=== PATIENT | male | born 1985 | race Caucasian/White ===

== ENCOUNTER 2019-05-11 14:53 | Emergency (ER) | payer OTHER ==
[2019-05-11] MEDS ORDERED: Sodium Chloride 0.9% 1,000 ML IV ONE (15:03)
[2019-05-11] MEDS ORDERED: Ketorolac 30 MG/ML SDV IVPUSH ONE (15:04)
[2019-05-11] MEDS ORDERED: Sodium Chloride 0.9% 10 ML Syringe FLUSH PRN (15:04)
[2019-05-11] MEDS ORDERED: Sodium Chloride 0.9% 2.5 ML Syringe FLUSH PRN (15:04)
[2019-05-11] MEDS ORDERED: Ondansetron 4 MG/2 ML SDV IVPUSH ONE (15:10)
[2019-05-11 15:41] LABS: BLOOD UREA NITROGEN,BUN 11 mg/dL (7.0-18.0); CARBON DIOXIDE,CO2 25.1 mmol/L (21.0-32.0); CHLORIDE,CL 104 mmol/L (98-107); GLUCOSE RANDOM 87 mg/dL (74-106); SODIUM,NA 140 mmol/L (136-148)
--- NOTE | 2019-05-11 15:57 | CT ---
Indication: Left flank pain. Technique: Multiple contiguous axial images were obtained from the lung bases through the symphysis pubis without intravenous contrast enhancement. Please note that all CT scans at this facility use dose modulation, iterative reconstruction, and/or weight-based dosing when appropriate to reduce radiation dose to as low as reasonably achievable. Comparison: None Findings: The lung bases are clear. No infiltrate, pleural effusion, or pneumothorax is identified. The heart is normal in size. No pericardial effusions identified. The unenhanced liver, spleen, pancreas, adrenals, and kidneys are normal. No intrahepatic biliary ductal dilatation is identified. Layering stones or sludge are identified within the gallbladder. No renal/ureteral calculi are identified. In the pelvis, the urinary bladder is normal. The prostate gland is normal. The small and large bowel are normal in caliber. Moderate amount of stool is identified within the colon. No significant diverticulosis is identified. The appendix is normal. The aorta is normal in caliber. No lytic or blastic lesions of the spine are identified. Impression: No evidence of hydronephrosis or hydroureter. No renal/ureteral calculi. Please note that all CT scans at this facility use dose modulation, iterative reconstruction, and/or weight-based dosing when appropriate to reduce radiation dose to as low as reasonably achievable. Dictated by Jolly Tadeo MD @ May 11 2019 3:46PM Signed by Dr. Jolly Tadeo @ May 11 2019 3:55PM
--- NOTE | 2019-05-11 16:09 | EDM.PDOC ---
ED HPI GENERAL MEDICAL PROBLEM - General Chief Complaint: Flank Pain Stated Complaint: BACK HURTING Time Seen by Provider: 05/11/19 14:57 Source of Information: Reports: Patient History Limitations: Reports: No Limitations - History of Present Illness INITIAL COMMENTS - FREE TEXT/NARRATIVE: History of present illness: []Patient has had 3 hours of left low back pain that feels like a knife stabbing he denies any trauma or any heavy lifting. 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 Fevers, chills, nausea, vomiting, diarrhea or abdominal pain Review of systems: As per history of present illness and below otherwise all systems reviewed and negative. Past medical history: As per history of present illness and as reviewed below otherwise noncontributory. Surgical history: As per history of present illness and as reviewed below otherwise noncontributory. Social history: No reported history of drug or alcohol abuse. Family history: As per history of present illness and as reviewed below otherwise noncontributory. Physical exam: General: Well developed, well nourished in NAD HEENT: Atraumatic, normocephalic, pupils reactive, negative for conjunctival pallor or scleral icterus, mucous membranes moist, throat clear, neck supple, nontender, trachea midline. Lungs: Clear to auscultation, breath sounds equal bilaterally, chest nontender. Heart: S1S2, regular, negative for clicks, rubs, or JVD. Abdomen: NABS, Soft, nondistended, nontender. Negative for masses or hepatosplenomegaly. Negative for costovertebral tenderness. Pelvis: Stable nontender. Genitourinary: Deferred. Rectal: Deferred. Extremities: Atraumatic, negative for cords or calf pain. Neurovascular unremarkable. Neuro: Awake, alert, oriented. Cranial nerves II through XII unremarkable. Cerebellum unremarkable. Motor and sensory unremarkable throughout. Exam nonfocal. Skin:warm and dry Diagnostics: UA, CBC, chemistry, abdomen and pelvis CT Therapeutics: Toradol IV hydration ED Course: Stable Impression: Low back pain-side without sciatica Prescriptions: Diclofenac Plan: Take meds as directed, follow up with your primary care physician, return to ER if symptoms worsen or change. Definitive disposition and diagnosis as appropriate pending reevaluation and review of above. left flank Pain Score (Numeric/FACES): 8 - Related Data Allergies Allergy/AdvReac Type Severity Reaction Status Date / Time morphine Allergy Itching Verified 05/11/19 15:07 Home Meds: Home Meds Diclofenac Sodium [Voltaren] 75 mg PO BIDMEALS PRN #20 tab.cr 05/11/19 [Rx] Past Medical History - Past Health History Medical/Surgical History: Denies Medical/Surgical History Cardiovascular History: Reports: Hypertension Gastrointestinal History: Reports: GERD Musculoskeletal History: Reports: Back Pain, Chronic - Past Surgical History GI Surgical History: Reports: Colonoscopy, Hernia, Inguinal, Hernia Repair/Other Musculoskeletal Surgical History: Reports: Other (See Below) Other Musculoskeletal Surgeries/Procedures:: hand sx Social & Family History - Family History Family Medical History: Noncontributory - Tobacco Use Smoking Status *Q: Current Every Day Smoker Years of Tobacco use: 22 Packs/Tins Daily: 0.5 - Recreational Drug Use Recreational Drug Use: No ED ROS GENERAL - Review of Systems Review Of Systems: See Below ED EXAM,LOWER BACK PAIN/INJURY - Physical Exam Exam: See Below Course - Vital Signs Last Recorded V/S: Last Vital Signs Temp 98.1 F 05/11/19 15:05 Pulse 86 05/11/19 15:05 Resp 18 05/11/19 15:05 BP 137/90 05/11/19 15:05 Pulse Ox 97 05/11/19 15:05 - Orders/Labs/Meds Orders: Active Orders 24 hr Category Date Time Status Sodium Chloride 0.9% [Saline Flush] Med 05/11/19 15:04 Active 10 ml FLUSH ASDIRECTED PRN Sodium Chloride 0.9% [Saline Flush] Med 05/11/19 15:04 Active 2.5 ml FLUSH ASDIRECTED PRN Saline Lock Insert [OM.PC] Stat Oth 05/11/19 15:03 Ordered Medication Orders Sodium Chloride (Saline Flush) 10 ml FLUSH ASDIRECTED PRN PRN Reason: Keep Vein Open Sodium Chloride (Saline Flush) 2.5 ml FLUSH ASDIRECTED PRN PRN Reason: Keep Vein Open Labs: Laboratory Tests 05/11/19 05/11/19 05/11/19 Range/Units 15:15 15:15 16:05 WBC 11.08 H (4.0-11.0) K/uL RBC 5.09 (4.50-5.90) M/uL Hgb 15.7 (13.0-17.0) g/dL Hct 46.5 (38.0-50.0) % MCV 91.4 (80.0-98.0) fL MCH 30.8 (27.0-32.0) pg MCHC 33.8 (31.0-37.0) g/dL RDW Std Deviation 45.3 (28.0-62.0) fl RDW Coeff of Mariza 14 (11.0-15.0) % Plt Count 246 (150-400) K/uL MPV 10.50 (7.40-12.00) fL Neut % (Auto) 62.2 (48.0-80.0) % Lymph % (Auto) 29.4 (16.0-40.0) % [place] % (Auto) 7.5 (0.0-15.0) % Eos % (Auto) 0.6 (0.0-7.0) % Baso % (Auto) 0.3 (0.0-1.5) % Neut # (Auto) 6.9 H (1.4-5.7) K/uL Lymph # (Auto) 3.3 H (0.6-2.4) K/uL [place] # (Auto) 0.8 (0.0-0.8) K/uL Eos # (Auto) 0.1 (0.0-0.7) K/uL Baso # (Auto) 0.0 (0.0-0.1) K/uL Nucleated RBC % 0.0 /100WBC Nucleated RBCs # 0 K/uL Sodium 140 (136-148) mmol/L Potassium 4.0 (3.5-5.1) mmol/L Chloride 104 (98-107) mmol/L Carbon Dioxide 25.1 (21.0-32.0) mmol/L BUN 11 (7.0-18.0) mg/dL Creatinine 1.2 (0.8-1.3) mg/dL Est Cr Clr Drug Dosing 93.41 mL/min Estimated GFR (MDRD) > 60.0 ml/min Glucose 87 (74-106) mg/dL Calcium 9.0 (8.5-10.1) mg/dL Total Bilirubin 0.4 (0.2-1.0) mg/dL AST 21 (15-37) IU/L ALT 37 (14-63) IU/L Alkaline Phosphatase 79 (46-116) U/L Total Protein 8.3 H (6.4-8.2) g/dL Albumin 4.2 (3.4-5.0) g/dL Globulin 4.1 H (2.6-4.0) g/dL Albumin/Globulin Ratio 1.0 (0.9-1.6) Urine Color YELLOW Urine Appearance CLEAR Urine pH 6.0 (5.0-8.0) Ur Specific [place] 1.025 (1.001-1.035) Urine Protein NEGATIVE (NEGATIVE) mg/dL Urine Glucose (UA) NEGATIVE (NEGATIVE) mg/dL Urine Ketones NEGATIVE (NEGATIVE) mg/dL Urine Occult Blood TRACE-INTACT H (NEGATIVE) Urine Nitrite NEGATIVE (NEGATIVE) Urine Bilirubin NEGATIVE (NEGATIVE) Urine Urobilinogen 0.2 (<2.0) EU/dL Ur Leukocyte Esterase NEGATIVE (NEGATIVE) Urine RBC 0-1 (0-2/HPF) Urine WBC NONE SEEN (0-5/HPF) Ur Epithelial Cells RARE (NONE-FEW) Urine Bacteria NOT SEEN (NEGATIVE) Urine Mucus LIGHT (NONE-MOD) Meds: Medications Generic Name Dose Route Start Last Admin Trade Name Freq PRN Reason Stop Dose Admin Sodium Chloride 10 ml 05/11/19 15:04 Saline Flush FLUSH ASDIRECTED PRN Keep Vein Open Sodium Chloride 2.5 ml 05/11/19 15:04 Saline Flush FLUSH ASDIRECTED PRN Keep Vein Open Discontinued Medications Generic Name Dose Route Start Last Admin Trade Name Freq PRN Reason Stop Dose Admin Sodium Chloride 1,000 mls @ 999 mls/hr 05/11/19 15:03 05/11/19 15:18 Normal Saline IV 05/11/19 16:03 999 mls/hr .Bolus ONE Administration Ketorolac Tromethamine 30 mg 05/11/19 15:04 05/11/19 15:18 Toradol IVPUSH 05/11/19 15:05 30 mg ONETIME ONE Administration Ondansetron HCl 4 mg 05/11/19 15:10 Zofran IVPUSH 05/11/19 15:11 ONETIME ONE Departure - Departure Time of Disposition: 16:22 Disposition: Home, Self-Care 01 Condition: Good Clinical Impression: Low back pain - Discharge Information *PRESCRIPTION DRUG MONITORING PROGRAM REVIEWED*: Not Applicable *COPY OF PRESCRIPTION DRUG MONITORING REPORT IN PATIENT SEVERO: Not Applicable Prescriptions: Diclofenac Sodium [Voltaren] 75 mg PO BIDMEALS PRN #20 tab.cr PRN Reason: Pain Instructions: Acute Back Pain, Adult Referrals: Quang Quevedo MD [Primary Care Provider] - Forms: ED Department Discharge Additional Instructions: The following information is given to patients seen in the emergency department who are being discharged to home. This information is to outline your options for follow-up care. We provide all patients seen in our emergency department with a follow-up referral. The need for follow-up, as well as the timing and circumstances, are variable depending upon the specifics of your emergency department visit. If you don't have a primary care physician on staff, we will provide you with a referral. We always advise you to contact your personal physician following an emergency department visit to inform them of the circumstance of the visit and for follow-up with them and/or the need for any referrals to a consulting specialist. The emergency department will also refer you to a specialist when appropriate. This referral assures that you have the opportunity for follow-up care with a specialist. All of these measure are taken in an effort to provide you with optimal care, which includes your follow-up. Under all circumstances we always encourage you to contact your private physician who remains a resource for coordinating your care. When calling for follow-up care, please make the office aware that this follow-up is from your recent emergency room visit. If for any reason you are refused follow-up, please contact the [facility] Emergency Department at and asked to speak to the emergency department charge nurse. Take meds as directed, follow up with your primary care physician, return to ER if symptoms worsen or change. [facility] [address] [place] [id number] - My Orders Last 24 Hours: My Active Orders 05/11/19 15:03 Saline Lock Insert [OM.PC] Stat 05/11/19 15:04 Sodium Chloride 0.9% [Saline Flush] 10 ml FLUSH ASDIRECTED PRN Sodium Chloride 0.9% [Saline Flush] 2.5 ml FLUSH ASDIRECTED PRN - Assessment/Plan Last 24 Hours: My Active Orders 05/11/19 15:03 Saline Lock Insert [OM.PC] Stat 05/11/19 15:04 Sodium Chloride 0.9% [Saline Flush] 10 ml FLUSH ASDIRECTED PRN Sodium Chloride 0.9% [Saline Flush] 2.5 ml FLUSH ASDIRECTED PRN
== END 2019-05-11 16:35 | disposition home or self-care (01) ==
LOC: MW.ED 14:53
DX: M54.5 Low back pain (principal); I10 Essential (primary) hypertension; K21.9 Gastro-esophageal reflux disease without esophagitis; F17.210 Nicotine dependence, cigarettes, uncomplicated
CPT/HCPCS: 36415; 74176; 80053; 81001; 85025; 96361; 96374; 99284; J1885; J7040

== ENCOUNTER 2019-10-23 16:27 | Observation (INO) | payer OTHER ==
--- NOTE | 2019-10-23 17:36 | EDM.PDOC ---
ED HPI GENERAL MEDICAL PROBLEM - General Chief Complaint: Lower Extremity Injury/Pain Stated Complaint: MUSCLE FATIGUE Time Seen by Provider: 10/23/19 17:25 Source of Information: Reports: Patient History Limitations: Reports: No Limitations - History of Present Illness INITIAL COMMENTS - FREE TEXT/NARRATIVE: This 34 year old male presents to the ED with a chief complaint of soreness and weakness in both legs. He denies any trauma to his extremities. He states that he wonder if he hurt his muscles. He was seen by his urologist yesterday and was sent to the respiratory clinic and a COVID-19 test was done. The results are pending. He denies any coughing or SOB. He denies any other symptoms at this time. Onset: Gradual (two weeks) Severity: Mild (to moderate but feels better now.) generalized aches Pain Score (Numeric/FACES): 4 - Related Data Allergies Allergy/AdvReac Type Severity Reaction Status Date / Time morphine Allergy Itching Verified 10/23/19 16:48 Home Meds: Home Meds Baclofen 10 mg PO ASDIRECTED PRN 10/23/19 [History] Ibuprofen [Motrin] 1 tab PO ASDIRECTED PRN 10/23/19 [History] Loratadine [Claritin] 1 tab PO DAILY 10/23/19 [History] Losartan Potassium 1 tab PO DAILY 10/23/19 [History] Non-Formulary Medication [NF Drug] 1 patch TOP ASDIRECTED PRN 10/23/19 [History] Omeprazole 1 tab PO DAILY 10/23/19 [History] Past Medical History - Past Health History Medical/Surgical History: Denies Medical/Surgical History Cardiovascular History: Reports: Hypertension Respiratory History: Reports: Sleep Apnea Other Respiratory History: uses a cpap Gastrointestinal History: Reports: GERD Musculoskeletal History: Reports: Back Pain, Chronic - Infectious Disease History Infectious Disease History: Reports: Chicken Pox - Past Surgical History GI Surgical History: Reports: Colonoscopy, Hernia, Inguinal, Hernia Repair/Other Musculoskeletal Surgical History: Reports: Other (See Below) Other Musculoskeletal Surgeries/Procedures:: hand sx, r wrist fusion. groin flap for hand Social & Family History - Family History Family Medical History: Noncontributory - Tobacco Use Smoking Status *Q: Current Every Day Smoker Years of Tobacco use: 18 Packs/Tins Daily: 0.5 - Caffeine Use Caffeine Use: Reports: Soda - Recreational Drug Use Recreational Drug Use: No Review of Systems - Review of Systems Review Of Systems: See Below Constitutional: Reports: Weakness (mainly in both legs that has gotten better) Eyes: Reports: No Symptoms Ears: Reports: No Symptoms Nose: Reports: No Symptoms Mouth/Throat: Reports: No Symptoms Respiratory: Reports: No Symptoms Cardiovascular: Reports: No Symptoms GI/Abdominal: Reports: No Symptoms Genitourinary: Reports: No Symptoms Musculoskeletal: Reports: Muscle Pain (and weakness of both anterior thighs.) Skin: Reports: No Symptoms Neurological: Reports: No Symptoms ED EXAM, GENERAL - Physical Exam Exam: See Below Exam Limited By: No Limitations General Appearance: Alert, WD/WN, No Apparent Distress, Other (He is obese) Eye Exam: Bilateral Eye: EOMI, Normal Fundi, Normal Inspection, PERRL Ears: Normal External Exam, Normal Canal, Hearing Grossly Normal, Normal TMs Nose: Normal Inspection, Normal Mucosa, No Blood Throat/Mouth: Normal Inspection, Normal Oropharynx Neck: Normal Inspection, Supple, Non-Tender, Full Range of Motion Respiratory/Chest: No Respiratory Distress, Lungs Clear, Normal Breath Sounds, Chest Non-Tender Cardiovascular: Normal Peripheral Pulses, Regular Rate, Rhythm, No Edema, No Murmur Peripheral Pulses: 3+: Radial (L), Radial (R), Dorsalis Pedis (L), Dorsalis Pedis (R) GI/Abdominal: Normal Bowel Sounds, Soft, Non-Tender, No Organomegaly, No Abnormal Bruit, No Mass (Male) Exam: Deferred Rectal (Males) Exam: Deferred Back Exam: Normal Inspection, Full Range of Motion Extremities: Normal Inspection, Normal Range of Motion, Non-Tender, Normal Capillary Refill. No: Joint Swelling, Belia's Sign, Increased Warmth, Redness Neurological: Alert, Oriented (times 3), CN II-XII Intact, Normal Cognition, Normal Reflexes, No Motor/Sensory Deficits Psychiatric: Normal Affect, Normal Mood Skin Exam: Warm, Dry, Intact, Normal Color, No Rash Lymphatic: No Adenopathy Course - Vital Signs Text/Narrative:: I discussed this case with Dr. Loza at 6:45PM. He will be admitted for further evaluation of his generalized weakness and hypokalemia. The patient agrees with the admission. Last Recorded V/S: Last Vital Signs Temp 98.6 F 10/23/19 16:45 Pulse 100 10/23/19 16:45 Resp 20 10/23/19 16:45 BP 166/112 H 10/23/19 16:45 Pulse Ox 95 10/23/19 16:45 - Orders/Labs/Meds Orders: Active Orders 24 hr Category Date Time Status MYOGLOBIN, URINE Stat Lab 10/23/19 17:42 Ordered Labs: Laboratory Tests 10/23/19 10/23/19 Range/Units 17:50 17:50 WBC 12.71 H (4.0-11.0) K/uL RBC 5.28 (4.50-5.90) M/uL Hgb 16.4 (13.0-17.0) g/dL Hct 49.2 (38.0-50.0) % MCV 93.2 (80.0-98.0) fL MCH 31.1 (27.0-32.0) pg MCHC 33.3 (31.0-37.0) g/dL RDW Std Deviation 46.1 (28.0-62.0) fl RDW Coeff of Mariza 14 (11.0-15.0) % Plt Count 216 (150-400) K/uL MPV 10.80 (7.40-12.00) fL Neut % (Auto) 68.9 (48.0-80.0) % Lymph % (Auto) 20.4 (16.0-40.0) % [place] % (Auto) 9.6 (0.0-15.0) % Eos % (Auto) 0.8 (0.0-7.0) % Baso % (Auto) 0.3 (0.0-1.5) % Neut # (Auto) 8.8 H (1.4-5.7) K/uL Lymph # (Auto) 2.6 H (0.6-2.4) K/uL [place] # (Auto) 1.2 H (0.0-0.8) K/uL Eos # (Auto) 0.1 (0.0-0.7) K/uL Baso # (Auto) 0.0 (0.0-0.1) K/uL Nucleated RBC % 0.0 /100WBC Nucleated RBCs # 0 K/uL Sodium 140 (136-148) mmol/L Potassium 3.3 L (3.5-5.1) mmol/L Chloride 104 (98-107) mmol/L Carbon Dioxide 26.4 (21.0-32.0) mmol/L BUN 12 (7.0-18.0) mg/dL Creatinine 1.0 (0.8-1.3) mg/dL Est Cr Clr Drug Dosing 112.09 mL/min Estimated GFR (MDRD) > 60.0 ml/min Glucose 83 (74-106) mg/dL Calcium 8.3 L (8.5-10.1) mg/dL Total Bilirubin 0.3 (0.2-1.0) mg/dL AST 33 (15-37) IU/L ALT 61 (14-63) IU/L Alkaline Phosphatase 76 (46-116) U/L Total Protein 7.2 (6.4-8.2) g/dL Albumin 3.6 (3.4-5.0) g/dL Globulin 3.6 (2.6-4.0) g/dL Albumin/Globulin Ratio 1.0 (0.9-1.6) Meds: Medications Discontinued Medications Generic Name Dose Route Start Last Admin Trade Name Freq PRN Reason Stop Dose Admin Potassium Chloride 20 meq 10/23/19 18:33 Klor-Con M20 PO 10/23/19 18:34 ONETIME ONE Departure - Departure Time of Disposition: 18:47 Disposition: Refer to Observation Condition: Fair Clinical Impression: Generalized weakness, Hypokalemia - Discharge Information *PRESCRIPTION DRUG MONITORING PROGRAM REVIEWED*: Yes *COPY OF PRESCRIPTION DRUG MONITORING REPORT IN PATIENT SEVERO: Yes Referrals: Henry Andrews [employer] [Primary Care Provider] - Sepsis Event Note - Evaluation Sepsis Screening Result: No Definite Risk - Focused Exam Vital Signs: Vital Signs Temp Pulse Resp BP Pulse Ox 10/23/19 16:45 98.6 F 100 20 166/112 H 95 Date Exam was Performed: 10/23/19 Time Exam was Performed: 18:47 - My Orders Last 24 Hours: My Active Orders 10/23/19 17:42 MYOGLOBIN, URINE Stat - Assessment/Plan Last 24 Hours: My Active Orders 10/23/19 17:42 MYOGLOBIN, URINE Stat
[2019-10-23 18:30] LABS: BLOOD UREA NITROGEN,BUN 12 mg/dL (7.0-18.0); CARBON DIOXIDE,CO2 26.4 mmol/L (21.0-32.0); CHLORIDE,CL 104 mmol/L (98-107); GLUCOSE RANDOM 83 mg/dL (74-106); POTASSIUM,K 3.3 mmol/L (3.5-5.1); SODIUM,NA 140 mmol/L (136-148)
[2019-10-23] MEDS ORDERED: Potassium Chloride 20 MEQ Tab.ER PO ONE (18:33)
--- NOTE | 2019-10-23 20:06 | PCM.HP.2 ---
H&P History of Present Illness - General Date of Service: 10/23/19 Admit Problem/Dx: Admission Diagnosis/Problem Admission Diagnosis/Problem Weakness - History of Present Illness Initial Comments - Free Text/Narative: This 34 year old male with PMH of HTN, low back pain, presents to the ED with a chief complaint of soreness and weakness in both legs more prominent in his right leg. . Patient states that he has been feeling very weak and tired from last 10 days. He saw his urologist yesterday who recommended getting tested for Covid which was done yesterday, results pending. Patient has been on testosterone supplements for past 10 weeks. Denied any trauma, high intensity exercise, drug use, herb use. 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 Patient had mild leucocytosis , no other SIRS, BP was elevated. Mild hypokalemia. Patient also had a low impact fall in the ER while going to bathroom. Patient was admitted for further management. generalized aches Pain Score (Numeric/FACES): 4 - Related Data Allergies/Adverse Reactions: Allergies Allergy/AdvReac Type Severity Reaction Status Date / Time morphine Allergy Itching Verified 10/23/19 20:56 Home Medications: Home Meds Baclofen 10 mg PO ASDIRECTED PRN 10/23/19 [History] Ibuprofen [Motrin] 800 mg PO ASDIRECTED PRN 10/23/19 [History] Loratadine [Claritin] 10 mg PO ASDIRECTED PRN 10/23/19 [History] Losartan Potassium 10 mg PO DAILY 10/23/19 [History] Non-Formulary Medication [NF Drug] 1 patch TOP ASDIRECTED PRN 10/23/19 [History] Omeprazole 20 mg PO ASDIRECTED PRN 10/23/19 [History] Past Medical History - Past Health History Medical/Surgical History: Denies Medical/Surgical History Cardiovascular History: Reports: Hypertension Respiratory History: Reports: Sleep Apnea Other Respiratory History: uses a cpap Gastrointestinal History: Reports: GERD Musculoskeletal History: Reports: Back Pain, Chronic - Infectious Disease History Infectious Disease History: Reports: Chicken Pox - Past Surgical History GI Surgical History: Reports: Colonoscopy, Hernia, Inguinal, Hernia Repair/Other Musculoskeletal Surgical History: Reports: Other (See Below) Other Musculoskeletal Surgeries/Procedures:: hand sx, r wrist fusion. groin flap for hand Social & Family History - Family History Family Medical History: Noncontributory - Tobacco Use Smoking Status *Q: Current Every Day Smoker Years of Tobacco use: 18 Packs/Tins Daily: 0.5 - Caffeine Use Caffeine Use: Reports: Soda - Recreational Drug Use Recreational Drug Use: No H&P Review of Systems - Review of Systems: Review Of Systems: See Below General: Reports: Malaise, Weakness, Fatigue. Denies: Fever, Chills HEENT: Denies: Dysphasia, Ear Pain Pulmonary: Denies: Shortness of Breath, Wheezing, Pleuritic Chest Pain Cardiovascular: Denies: Chest Pain, Palpitations, Dyspnea on Exertion Gastrointestinal: Denies: Abdominal Pain, Anorexia, Black Stool Genitourinary: Denies: Dysuria, Frequency, Burning Musculoskeletal: Denies: Neck Pain, Shoulder Pain, Arm Pain Skin: Denies: Jaundice, Mottled, Pallor Psychiatric: Denies: Confusion, Depression Exam - Exam Exam: See Below - Vital Signs Vital Signs: Last Vital Signs Temp 37.0 C 10/23/19 16:45 Pulse 100 10/23/19 16:45 Resp 20 10/23/19 16:45 BP 166/112 H 10/23/19 16:45 Pulse Ox 95 10/23/19 16:45 Weight: 139.253 kg - Exam General: Alert, Oriented, Cooperative Neck: Supple, Trachea Midline Lungs: Clear to Auscultation, Normal Respiratory Effort Cardiovascular: Regular Rate, Regular Rhythm, Normal S1, Normal S2 GI/Abdominal Exam: Normal Bowel Sounds, Soft, Non-Tender Skin: Warm, Dry Neuro Extensive - Mental Status: Alert, Oriented x3, Normal Cognition Neuro Extensive - Motor, Sensory, Reflexes: CN II-XII Intact, Abnormal Gait. No : Receptive Aphasia, Facial Palsy (R), Facial Palsy w Forehead DTR: 2+: Patella (L), 3+: Patella (R) - Patient Data Lab Results Last 24 hrs: Laboratory Results - last 24 hr 10/23/19 10/23/19 10/23/19 Range/Units 17:50 17:50 19:00 WBC 12.71 H (4.0-11.0) K/uL RBC 5.28 (4.50-5.90) M/uL Hgb 16.4 (13.0-17.0) g/dL Hct 49.2 (38.0-50.0) % MCV 93.2 (80.0-98.0) fL MCH 31.1 (27.0-32.0) pg MCHC 33.3 (31.0-37.0) g/dL RDW Std Deviation 46.1 (28.0-62.0) fl RDW Coeff of Mariza 14 (11.0-15.0) % Plt Count 216 (150-400) K/uL MPV 10.80 (7.40-12.00) fL Neut % (Auto) 68.9 (48.0-80.0) % Lymph % (Auto) 20.4 (16.0-40.0) % [place] % (Auto) 9.6 (0.0-15.0) % Eos % (Auto) 0.8 (0.0-7.0) % Baso % (Auto) 0.3 (0.0-1.5) % Neut # (Auto) 8.8 H (1.4-5.7) K/uL Lymph # (Auto) 2.6 H (0.6-2.4) K/uL [place] # (Auto) 1.2 H (0.0-0.8) K/uL Eos # (Auto) 0.1 (0.0-0.7) K/uL Baso # (Auto) 0.0 (0.0-0.1) K/uL Nucleated RBC % 0.0 /100WBC Nucleated RBCs # 0 K/uL Sodium 140 (136-148) mmol/L Potassium 3.3 L (3.5-5.1) mmol/L Chloride 104 (98-107) mmol/L Carbon Dioxide 26.4 (21.0-32.0) mmol/L BUN 12 (7.0-18.0) mg/dL Creatinine 1.0 (0.8-1.3) mg/dL Est Cr Clr Drug Dosing 112.09 mL/min Estimated GFR (MDRD) > 60.0 ml/min Glucose 83 (74-106) mg/dL Calcium 8.3 L (8.5-10.1) mg/dL Total Bilirubin 0.3 (0.2-1.0) mg/dL AST 33 (15-37) IU/L ALT 61 (14-63) IU/L Alkaline Phosphatase 76 (46-116) U/L Total Protein 7.2 (6.4-8.2) g/dL Albumin 3.6 (3.4-5.0) g/dL Globulin 3.6 (2.6-4.0) g/dL Albumin/Globulin Ratio 1.0 (0.9-1.6) Urine Color YELLOW Urine Appearance HAZY Urine pH 6.0 (5.0-8.0) Ur Specific [place] >= 1.030 (1.001-1.035) Urine Protein NEGATIVE (NEGATIVE) mg/dL Urine Glucose (UA) NEGATIVE (NEGATIVE) mg/dL Urine Ketones NEGATIVE (NEGATIVE) mg/dL Urine Occult Blood TRACE-INTACT H (NEGATIVE) Urine Nitrite NEGATIVE (NEGATIVE) Urine Bilirubin NEGATIVE (NEGATIVE) Urine Urobilinogen 0.2 (<2.0) EU/dL Ur Leukocyte Esterase NEGATIVE (NEGATIVE) Urine RBC 1-4 (0-2/HPF) Urine WBC 0-3 (0-5/HPF) Ur Epithelial Cells RARE (NONE-FEW) Urine Bacteria FEW (NEGATIVE) Result Diagrams: 10/24/19 06:15 10/24/19 06:15 Sepsis Event Note - Evaluation Sepsis Screening Result: No Definite Risk - Focused Exam Vital Signs: Vital Signs Temp Pulse Resp BP Pulse Ox 10/23/19 16:45 37.0 C 100 20 166/112 H 95 Date Exam was Performed: 10/26/19 Time Exam was Performed: 12:14 - Problem List (1) Generalized weakness SNOMED Code(s): 87530270 ICD Code: R53.1 - WEAKNESS Status: Acute (2) Hypokalemia SNOMED Code(s): 94314267 ICD Code: E87.6 - HYPOKALEMIA Status: Acute (3) Weakness of right foot SNOMED Code(s): 461456991 ICD Code: R29.898 - OTH SYMPTOMS AND SIGNS INVOLVING THE MUSCULOSKELETAL SYSTEM Status: Acute Problem List Initiated/Reviewed/Updated: Yes Orders Last 24hrs: Active Orders 24 hr Category Date Time Status Admission Status [Patient Status] [ADT] Stat ADT 10/23/19 18:51 Active Antiembolic Devices [RC] PER UNIT ROUTINE Care 10/23/19 19:59 Ordered Oxygen Therapy [RC] PRN Care 10/23/19 19:57 Ordered Pulse Oximetry [RC] PRN Care 10/23/19 19:57 Ordered Up With Assistance [RC] ASDIRECTED Care 10/23/19 19:57 Ordered VTE/DVT Education [RC] PER UNIT ROUTINE Care 10/23/19 19:57 Ordered Vital Signs [RC] Q4H Care 10/23/19 19:57 Ordered Heart Healthy Diet [DIET] Diet 10/23/19 Dinner Ordered C-REACTIVE PROTEIN [CHEM] Routine Lab 10/23/19 19:57 Ordered C-REACTIVE PROTEIN [CHEM] Routine Lab 10/23/19 19:57 Stop Req CPK [CREATINE KINASE,CK] [CHEM] Routine Lab 10/23/19 19:56 Ordered MYOGLOBIN, URINE Stat Lab 10/23/19 17:42 Ordered TROPONIN I [CHEM] Routine Lab 10/23/19 20:02 Ordered Lactated Ringers @ 125 MLS/HR(1000ml) Med 10/23/19 20:00 Ordered Lactated Ringers [Ringers, Lactated] 1,000 ml IV ASDIRECTED Losartan Potassium Med 10/24/19 09:00 Ordered 1 tab PO DAILY Omeprazole Med 10/24/19 09:00 Ordered 20 mg PO DAILY Sequential Compression Device [OM.PC] Per Unit Routine Oth 10/23/19 19:59 Ordered Resuscitation Status Routine Resus Stat 10/23/19 19:57 Ordered Medication Orders Lactated Ringer's (Ringers, Lactated) 1,000 mls @ 125 mls/hr IV ASDIRECTED WILLIS Non-Formulary Medication (Losartan Potassium) 1 tab PO DAILY WILLIS Omeprazole (Omeprazole) 20 mg PO DAILY WILLIS Assessment/Plan Comment:: 34 y/o M admitted for weakness, fall Will check CPK, TSH, CRP Will start hydration with IV fluids Will f/u on Covid results Has focal weakness of right foot, will obtain CT scan head to r/o acute stroke. UA noted, repeat UA in AM Resume BP meds Monitor and replete electrolytes as needed CD for DVT ppx
--- NOTE | 2019-10-23 20:47 | CT ---
Head CT Technique: Multiple axial sections were obtained through the brain. Intravenous contrast was not utilized. Comparison: No prior intracranial imaging. Findings: Ventricles along with basal cisterns and sulci over the convexities are within normal limits for the patient's age. No abnormal parenchymal densities are seen. No evidence of intracranial hemorrhage. No midline shift or mass-effect is seen. Bone window settings were reviewed. Mastoid sinuses show nothing acute. Visualized paranasal sinuses show nothing acute. No acute calvarial abnormality is appreciated. Impression: 1. No abnormality is appreciated on noncontrast head CT study. Note: Please correlate if patient's symptoms warrant further evaluation by MRI. Diagnostic code #1 This report was dictated in MDT
[2019-10-23] MEDS: Lactated Ringers 1,000 ML IV SCH (21:18)
[2019-10-23] MEDS ORDERED: Labetalol 100 MG/20 ML MDV IVPUSH PRN (23:38)
[2019-10-24] MEDS: Lactated Ringers 1,000 ML IV SCH ×2 (05:30→13:34)
[2019-10-24 07:01] LABS: BLOOD UREA NITROGEN,BUN 11 mg/dL (7.0-18.0); CARBON DIOXIDE,CO2 27.3 mmol/L (21.0-32.0); CHLORIDE,CL 105 mmol/L (98-107); GLUCOSE RANDOM 94 mg/dL (74-106); POTASSIUM,K 4.2 mmol/L (3.5-5.1); SODIUM,NA 140 mmol/L (136-148)
[2019-10-24] MEDS ORDERED: Omeprazole 20 MG Cap.CR PO SCH (09:00)
[2019-10-24] MEDS ORDERED: LOSARTAN POTASSIUM PO SCH (09:00)
[2019-10-24] MEDS ORDERED: LORazepam 2 MG/ML SDV IVPUSH ONE (13:39)
--- NOTE | 2019-10-24 13:59 | PCM.DCSUM1 ---
Discharge Summary - Hospital Course HPI Initial Comments: This 34 year old male with PMH of HTN, low back pain, presents to the ED with a chief complaint of soreness and weakness in both legs more prominent in his right leg. Patient states that he has been feeling very weak and tired from last 10 days. He saw his urologist yesterday who recommended getting tested for Covid which was done yesterday, results pending. Patient has been on testosterone supplements for past 10 weeks. Denied any trauma, high intensity exercise, drug use, herb use. 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 Patient had mild leucocytosis , no other SIRS, BP was elevated. Mild hypokalemia. Patient also had a low impact fall in the ER while going to bathroom. Patient was admitted for further management. Patient was started on IV fluids, CPK was mildly elevated to 600s, CRP was negative, ESR was 5, TSH normal, BP stable, no fever. CT head was obtained due to right foot weakness, which was negative as well. Overnight his symptoms improved, foot weakness resolved. PT assessed the patient for safe ambulation. Patient was medically stable for dc and recommended to fu with PCP and neurology on Outpatient basis. - Discharge Data Discharge Date: 10/24/19 Discharge Disposition: Home, Self-Care 01 Condition: Stable - Referral to Home Health Primary Care Physician: Henry Andrews NP - Discharge Diagnosis/Problem(s) (1) Generalized weakness SNOMED Code(s): 17113616 ICD Code: R53.1 - WEAKNESS Status: Acute (2) Hypokalemia SNOMED Code(s): 11313595 ICD Code: E87.6 - HYPOKALEMIA Status: Acute (3) Weakness of right foot SNOMED Code(s): 800106838 ICD Code: R29.898 - OTH SYMPTOMS AND SIGNS INVOLVING THE MUSCULOSKELETAL SYSTEM Status: Acute - Patient Summary/Data Consults: Consultations 10/24/19 08:01 PT Evaluation and Treatment [CONS] Routine - Discharge Plan *PRESCRIPTION DRUG MONITORING PROGRAM REVIEWED*: Yes *COPY OF PRESCRIPTION DRUG MONITORING REPORT IN PATIENT SEVERO: Yes Home Medications: Home Meds Baclofen 10 mg PO ASDIRECTED PRN 10/23/19 [History] Ibuprofen [Motrin] 800 mg PO ASDIRECTED PRN 10/23/19 [History] Loratadine [Claritin] 10 mg PO ASDIRECTED PRN 10/23/19 [History] Losartan Potassium 10 mg PO DAILY 10/23/19 [History] Non-Formulary Medication [NF Drug] 1 patch TOP ASDIRECTED PRN 10/23/19 [History] Omeprazole 20 mg PO ASDIRECTED PRN 10/23/19 [History] Patient Handouts: COVID-19 Frequently Asked Questions Referrals: Henry Andrews TEST INSPECTION ENGINEER [Primary Care Provider] - - Discharge Summary/Plan Comment DC Time >30 min.: No - Patient Data Vitals - Most Recent: Last Vital Signs Temp 37 C 10/24/19 12:00 Pulse 75 10/24/19 12:00 Resp 18 10/24/19 12:00 BP 140/89 10/24/19 12:00 Pulse Ox 95 10/24/19 12:00 Weight - Most Recent: 139.4 kg I&O - Last 24 hours: Intake & Output 10/23/19 10/24/19 10/24/19 22:59 06:59 14:59 Intake Total 1204 Output Total 200 Balance 1004 Lab Results - Last 24 hrs: Laboratory Results - last 24 hr 10/23/19 10/23/19 10/23/19 Range/Units 17:50 17:50 17:50 WBC 12.71 H (4.0-11.0) K/uL RBC 5.28 (4.50-5.90) M/uL Hgb 16.4 (13.0-17.0) g/dL Hct 49.2 (38.0-50.0) % MCV 93.2 (80.0-98.0) fL MCH 31.1 (27.0-32.0) pg MCHC 33.3 (31.0-37.0) g/dL RDW Std Deviation 46.1 (28.0-62.0) fl RDW Coeff of Mariza 14 (11.0-15.0) % Plt Count 216 (150-400) K/uL MPV 10.80 (7.40-12.00) fL Neut % (Auto) 68.9 (48.0-80.0) % Lymph % (Auto) 20.4 (16.0-40.0) % Bib[place] % (Auto) 9.6 (0.0-15.0) % Eos % (Auto) 0.8 (0.0-7.0) % Baso % (Auto) 0.3 (0.0-1.5) % Neut # (Auto) 8.8 H (1.4-5.7) K/uL Lymph # (Auto) 2.6 H (0.6-2.4) K/uL Bibb # (Auto) 1.2 H (0.0-0.8) K/uL Eos # (Auto) 0.1 (0.0-0.7) K/uL Baso # (Auto) 0.0 (0.0-0.1) K/uL Nucleated RBC % 0.0 /100WBC Nucleated RBCs # 0 K/uL Sodium 140 (136-148) mmol/L Potassium 3.3 L (3.5-5.1) mmol/L Chloride 104 (98-107) mmol/L Carbon Dioxide 26.4 (21.0-32.0) mmol/L BUN 12 (7.0-18.0) mg/dL Creatinine 1.0 (0.8-1.3) mg/dL Est Cr Clr Drug Dosing 112.09 mL/min Estimated GFR (MDRD) > 60.0 ml/min Glucose 83 (74-106) mg/dL Calcium 8.3 L (8.5-10.1) mg/dL Phosphorus (2.6-4.7) mg/dL Magnesium (1.8-2.4) mg/dL Total Bilirubin 0.3 (0.2-1.0) mg/dL AST 33 (15-37) IU/L ALT 61 (14-63) IU/L Alkaline Phosphatase 76 (46-116) U/L Creatine Kinase 646 H (26-308) U/L Troponin I (0.000-0.056) ng/mL C-Reactive Protein (0.00-0.90) mg/dL Total Protein 7.2 (6.4-8.2) g/dL Albumin 3.6 (3.4-5.0) g/dL Globulin 3.6 (2.6-4.0) g/dL Albumin/Globulin Ratio 1.0 (0.9-1.6) TSH 3rd Generation (0.36-3.74) uIU/mL Testosterone Level (241-827) ng/dL Urine Color Urine Appearance Urine pH (5.0-8.0) Ur Specific [place] (1.001-1.035) Urine Protein (NEGATIVE) mg/dL Urine Glucose (UA) (NEGATIVE) mg/dL Urine Ketones (NEGATIVE) mg/dL Urine Occult Blood (NEGATIVE) Urine Nitrite (NEGATIVE) Urine Bilirubin (NEGATIVE) Urine Urobilinogen (<2.0) EU/dL Ur Leukocyte Esterase (NEGATIVE) Urine RBC (0-2/HPF) Urine WBC (0-5/HPF) Ur Epithelial Cells (NONE-FEW) Urine Bacteria (NEGATIVE) Urine Mucus (NONE-MOD) 10/23/19 10/23/19 10/24/19 Range/Units 17:50 19:00 06:15 WBC 9.79 (4.0-11.0) K/uL RBC 4.97 (4.50-5.90) M/uL Hgb 15.4 (13.0-17.0) g/dL Hct 47.2 (38.0-50.0) % MCV 95.0 (80.0-98.0) fL MCH 31.0 (27.0-32.0) pg MCHC 32.6 (31.0-37.0) g/dL RDW Std Deviation 47.8 (28.0-62.0) fl RDW Coeff of Mariza 14 (11.0-15.0) % Plt Count 200 (150-400) K/uL MPV 11.00 (7.40-12.00) fL Neut % (Auto) 58.9 (48.0-80.0) % Lymph % (Auto) 30.6 (16.0-40.0) % Bibb % (Auto) 9.0 (0.0-15.0) % Eos % (Auto) 1.2 (0.0-7.0) % Baso % (Auto) 0.3 (0.0-1.5) % Neut # (Auto) 5.8 H (1.4-5.7) K/uL Lymph # (Auto) 3.0 H (0.6-2.4) K/uL Bibb # (Auto) 0.9 H (0.0-0.8) K/uL Eos # (Auto) 0.1 (0.0-0.7) K/uL Baso # (Auto) 0.0 (0.0-0.1) K/uL Nucleated RBC % 0.0 /100WBC Nucleated RBCs # 0 K/uL Sodium (136-148) mmol/L Potassium (3.5-5.1) mmol/L Chloride (98-107) mmol/L Carbon Dioxide (21.0-32.0) mmol/L BUN (7.0-18.0) mg/dL Creatinine (0.8-1.3) mg/dL Est Cr Clr Drug Dosing mL/min Estimated GFR (MDRD) ml/min Glucose (74-106) mg/dL Calcium (8.5-10.1) mg/dL Phosphorus (2.6-4.7) mg/dL Magnesium (1.8-2.4) mg/dL Total Bilirubin (0.2-1.0) mg/dL AST (15-37) IU/L ALT (14-63) IU/L Alkaline Phosphatase (46-116) U/L Creatine Kinase (26-308) U/L Troponin I < 0.050 (0.000-0.056) ng/mL C-Reactive Protein < 0.20 (0.00-0.90) mg/dL Total Protein (6.4-8.2) g/dL Albumin (3.4-5.0) g/dL Globulin (2.6-4.0) g/dL Albumin/Globulin Ratio (0.9-1.6) TSH 3rd Generation (0.36-3.74) uIU/mL Testosterone Level (241-827) ng/dL Urine Color YELLOW Urine Appearance HAZY Urine pH 6.0 (5.0-8.0) Ur Specific [place] >= 1.030 (1.001-1.035) Urine Protein NEGATIVE (NEGATIVE) mg/dL Urine Glucose (UA) NEGATIVE (NEGATIVE) mg/dL Urine Ketones NEGATIVE (NEGATIVE) mg/dL Urine Occult Blood TRACE-INTACT H (NEGATIVE) Urine Nitrite NEGATIVE (NEGATIVE) Urine Bilirubin NEGATIVE (NEGATIVE) Urine Urobilinogen 0.2 (<2.0) EU/dL Ur Leukocyte Esterase NEGATIVE (NEGATIVE) Urine RBC 1-4 (0-2/HPF) Urine WBC 0-3 (0-5/HPF) Ur Epithelial Cells RARE (NONE-FEW) Urine Bacteria FEW (NEGATIVE) Urine Mucus (NONE-MOD) 10/24/19 10/24/19 10/24/19 Range/Units 06:15 06:15 08:30 WBC (4.0-11.0) K/uL RBC (4.50-5.90) M/uL Hgb (13.0-17.0) g/dL Hct (38.0-50.0) % MCV (80.0-98.0) fL MCH (27.0-32.0) pg MCHC (31.0-37.0) g/dL RDW Std Deviation (28.0-62.0) fl RDW Coeff of Mariza (11.0-15.0) % Plt Count (150-400) K/uL MPV (7.40-12.00) fL Neut % (Auto) (48.0-80.0) % Lymph % (Auto) (16.0-40.0) % Bibb % (Auto) (0.0-15.0) % Eos % (Auto) (0.0-7.0) % Baso % (Auto) (0.0-1.5) % Neut # (Auto) (1.4-5.7) K/uL Lymph # (Auto) (0.6-2.4) K/uL Bibb # (Auto) (0.0-0.8) K/uL Eos # (Auto) (0.0-0.7) K/uL Baso # (Auto) (0.0-0.1) K/uL Nucleated RBC % /100WBC Nucleated RBCs # K/uL Sodium 140 (136-148) mmol/L Potassium 4.2 (3.5-5.1) mmol/L Chloride 105 (98-107) mmol/L Carbon Dioxide 27.3 (21.0-32.0) mmol/L BUN 11 (7.0-18.0) mg/dL Creatinine 1.0 (0.8-1.3) mg/dL Est Cr Clr Drug Dosing 112.09 mL/min Estimated GFR (MDRD) > 60.0 ml/min Glucose 94 (74-106) mg/dL Calcium 8.2 L (8.5-10.1) mg/dL Phosphorus 3.6 (2.6-4.7) mg/dL Magnesium 2.1 (1.8-2.4) mg/dL Total Bilirubin (0.2-1.0) mg/dL AST (15-37) IU/L ALT (14-63) IU/L Alkaline Phosphatase (46-116) U/L Creatine Kinase 648 H (26-308) U/L Troponin I (0.000-0.056) ng/mL C-Reactive Protein (0.00-0.90) mg/dL Total Protein (6.4-8.2) g/dL Albumin (3.4-5.0) g/dL Globulin (2.6-4.0) g/dL Albumin/Globulin Ratio (0.9-1.6) TSH 3rd Generation 1.57 (0.36-3.74) uIU/mL Testosterone Level 838 H (241-827) ng/dL Urine Color YELLOW Urine Appearance CLEAR Urine pH 7.0 (5.0-8.0) Ur Specific [place] 1.025 (1.001-1.035) Urine Protein NEGATIVE (NEGATIVE) mg/dL Urine Glucose (UA) NEGATIVE (NEGATIVE) mg/dL Urine Ketones NEGATIVE (NEGATIVE) mg/dL Urine Occult Blood NEGATIVE (NEGATIVE) Urine Nitrite NEGATIVE (NEGATIVE) Urine Bilirubin NEGATIVE (NEGATIVE) Urine Urobilinogen 0.2 (<2.0) EU/dL Ur Leukocyte Esterase NEGATIVE (NEGATIVE) Urine RBC 0-2 (0-2/HPF) Urine WBC 0-2 (0-5/HPF) Ur Epithelial Cells OCCASIONAL (NONE-FEW) Urine Bacteria FEW (NEGATIVE) Urine Mucus LIGHT (NONE-MOD) Med Orders - Current: Current Medications Lactated Ringer's (Ringers, Lactated) 1,000 mls @ 125 mls/hr IV ASDIRECTED WILLIS Last Admin: 10/24/19 13:34 Dose: 125 mls/hr Labetalol HCl (Normodyne) 10 mg IVPUSH Q4H PRN; Protocol PRN Reason: Hypertension Losartan Potassium (Cozaar) 100 mg PO BEDTIME WILLIS Omeprazole (Omeprazole) 20 mg PO DAILY [facility] Last Admin: 10/24/19 09:10 Dose: 20 mg Discontinued Medications Lorazepam (Ativan) 1 mg IVPUSH ONETIME ONE Stop: 10/24/19 13:40 Non-Formulary Medication (Losartan Potassium) 1 tab PO DAILY [facility] Last Admin: 10/24/19 09:41 Dose: Not Given Potassium Chloride (Klor-Con M20) 20 meq PO ONETIME ONE Stop: 10/23/19 18:34 Last Admin: 10/23/19 18:59 Dose: 20 meq
[2019-10-24] MEDS ORDERED: Losartan 50 MG Tab PO SCH (21:00)
== END 2019-10-24 15:05 | disposition home or self-care (01) ==
LOC: MW.ED 16:27 → MW.MS 18:51
PROVIDERS: ADMIT Student in an Organized Health Care Education/Training Program; ATTEND Student in an Organized Health Care Education/Training Program
DX: R53.1 Weakness (principal); E87.6 Hypokalemia; R29.898 Other symptoms and signs involving the musculoskeletal system; R94.5 Abnormal results of liver function studies; I10 Essential (primary) hypertension; R74.8 Abnormal levels of other serum enzymes; F17.210 Nicotine dependence, cigarettes, uncomplicated; K21.9 Gastro-esophageal reflux disease without esophagitis; Z20.828 Contact with and (suspected) exposure to other viral communicable diseases; Z88.5 Allergy status to narcotic agent
CPT/HCPCS: 36415; 70450; 80048; 80053; 81001; 82550; 83735; 84100; 84403; 84443; 84484; 85025; 85652; 86140; 96361; 96374; 97161; 99285; A9270; G0378; J2060; J7120; 99284

== ENCOUNTER 2020-04-20 20:23 | Emergency (ER) | payer OTHER ==
[2020-04-20] MEDS ORDERED: Acetaminophen/HYDROcodone 325-5 MG Tab PO ONE (21:44)
[2020-04-20] MEDS ORDERED: Ibuprofen 600 MG Tab PO ONE (21:44)
[2020-04-20] MEDS ORDERED: Diphtheria,Pertussis(Acell),Tetanus Vaccine 0.5 ML Syringe IM ONE (21:46)
--- NOTE | 2020-04-20 21:49 | EDM.PDOC ---
ED HPI GENERAL MEDICAL PROBLEM - General Chief Complaint: Upper Extremity Injury/Pain Stated Complaint: SMASHED FINGER AT WORKPLACE Time Seen by Provider: 04/20/20 20:56 - History of Present Illness INITIAL COMMENTS - FREE TEXT/NARRATIVE: HISTORY AND PHYSICAL: History of present illness: 35-year-old male who was at work and crushed his finger left middle, in between [address] approximately 150 [address] each around noon. He continued to work when he got home it got worse. He had a small abrasion/cut where there is a flap of skin that he took off at work on his middle finger on the dorsal side. He has full range of motion and good sensation it just throbs and hurt and was swollen. He denies any other associated signs or symptoms. No other modifying, aggravating or alleviating factors. Review of systems: A 10-point review of systems, other than pertinent positives and negatives as stated per HPI, is otherwise negative. Past medical history: As per history of present illness and as reviewed below otherwise noncontributory. Surgical history: As per history of present illness and as reviewed below otherwise noncontributory. Social history: No reported history of drug or alcohol abuse. Family history: As per history of present illness and as reviewed below otherwise noncontributory. Physical exam: VITAL SIGNS: Reviewed. GENERAL: Appears to be in mild pain HEAD: No signs of head trauma. EYES: Pupils are equal. Extraocular motions intact. EARS: Hearing grossly intact. MOUTH: Oropharynx is normal. NECK: No adenopathy, no JVD. CHEST: Chest with clear breath sounds bilaterally. No wheezes, rales, or rhonchi. CARDIAC: Regular rate and rhythm. Normal S1 and S2, without murmurs, gallops, or rubs. VASCULAR: Peripheral pulses normal and equal in all extremities. ABDOMEN: Soft, without detectable tenderness. No sign of distention. No rebound or guarding, and no masses palpated. MUSCULOSKELETAL: Good range of motion in all major joints. The left middle finger is slightly swollen. The pad of the finger appears more swollen than the other pad on the opposing side. There is no subungual hematoma. Distal neurovascular function is intact. NEUROLOGIC EXAM: Alert and oriented x 3. No focal sensory or motor deficits. Speech normal. Follows commands. PSYCHIATRIC: Mood normal. SKIN: No rash or lesions. Initial Differential Diagnosis & Plan: Fracture, contusion, abrasion, ligamentous injury X-rays, update Tdap, pain medications. Reevaluate after x-rays Definitive disposition and diagnosis as appropriate pending reevaluation and review of above. left middle finger Pain Score (Numeric/FACES): 7 - Related Data Allergies Allergy/AdvReac Type Severity Reaction Status Date / Time morphine Allergy Itching Verified 04/20/20 21:21 Home Meds: Home Meds Baclofen 10 mg PO ASDIRECTED PRN 10/23/19 [History] Ibuprofen [Motrin] 800 mg PO ASDIRECTED PRN 10/23/19 [History] Loratadine [Claritin] 10 mg PO ASDIRECTED PRN 10/23/19 [History] Losartan Potassium 100 mg PO DAILY 10/23/19 [History] Non-Formulary Medication [NF Drug] 1 patch TOP ASDIRECTED PRN 10/23/19 [History] Omeprazole 20 mg PO ASDIRECTED PRN 10/23/19 [History] Past Medical History - Past Health History Medical/Surgical History: Denies Medical/Surgical History Cardiovascular History: Reports: Hypertension Respiratory History: Reports: Sleep Apnea Other Respiratory History: uses a cpap Gastrointestinal History: Reports: GERD Musculoskeletal History: Reports: Back Pain, Chronic Psychiatric History: Reports: Anxiety, Depression - Infectious Disease History Infectious Disease History: Reports: Chicken Pox - Past Surgical History GI Surgical History: Reports: Colonoscopy, Hernia, Inguinal, Hernia Repair/Other Musculoskeletal Surgical History: Reports: Other (See Below) Other Musculoskeletal Surgeries/Procedures:: hand sx, r wrist fusion. groin flap for hand Social & Family History - Family History Family Medical History: Noncontributory - Tobacco Use Tobacco Use Status *Q: Current Every Day Tobacco User Years of Tobacco use: 20 Packs/Tins Daily: 1 - Caffeine Use Caffeine Use: Reports: Soda - Recreational Drug Use Recreational Drug Use: No Review of Systems - Review of Systems Review Of Systems: See Below (noted) ED EXAM, GENERAL - Physical Exam Exam: See Below (noted) ED TRAUMA EXTREMITY PROCEDURES - Splinting Left 3rd Digit Splint Site: left third finger Pre-Procedure NV Status: Normal Post-Procedure NV Status: Normal Splint Material: Metal Splint Design: Volar Applied & Form Fitted By: Nurse Provider Post-Splint Application NV Check: NV Status Normal, Good Position Complications: No Course - Vital Signs Last Recorded V/S: Last Vital Signs Temp 97.8 F 04/20/20 21:22 Pulse 91 04/20/20 21:22 Resp 16 04/20/20 21:22 BP 147/97 H 04/20/20 21:22 Pulse Ox 94 L 04/20/20 21:22 - Orders/Labs/Meds Orders: Active Orders 24 hr Category Date Time Status Splinting [RC] ASDIRECTED Care 04/20/20 22:35 Ordered Vaccines to be Administered [RC] PER UNIT ROUTINE Care 04/20/20 21:46 Active Meds: Medications Discontinued Medications Generic Name Dose Route Start Last Admin Trade Name Freq PRN Reason Stop Dose Admin Hydrocodone Bitart/Acetaminophen 2 tab 04/20/20 21:44 [place] 325-5 Mg PO 04/20/20 21:45 ONETIME ONE Diphtheria/Tetanus/Acell Pertussis 0.5 ml 04/20/20 21:46 Adacel IM 04/20/20 21:47 .ONCE ONE Ibuprofen 600 mg 04/20/20 21:44 Motrin PO 04/20/20 21:45 ONETIME ONE - Re-Assessments/Exams Free Text/Narrative Re-Assessment/Exam: 04/20/20 22:35 Splinting and fracture care for his left distal third phalanx. My diagnostic impression: 1. Left distal third phalanx fracture Departure - Departure Time of Disposition: 22:36 Disposition: Home, Self-Care 01 Clinical Impression: Phalanx, distal fracture of finger - Discharge Information *PRESCRIPTION DRUG MONITORING PROGRAM REVIEWED*: Not Applicable *COPY OF PRESCRIPTION DRUG MONITORING REPORT IN PATIENT SEVERO: Not Applicable Instructions: Cast or Splint Care, Adult, [id number], Finger Fracture, Adult Referrals: PCP,None [Primary Care Provider] - Forms: ED Department Discharge, ED Return to Work/School Form Additional Instructions: The following information is given to patients seen in the emergency department who are being discharged to home. This information is to outline your options for follow-up care. We provide all patients seen in our emergency department with a follow-up referral. The need for follow-up, as well as the timing and circumstances, are variable depending upon the specifics of your emergency department visit. If you don't have a primary care physician on staff, we will provide you with a referral. We always advise you to contact your personal physician following an emergency department visit to inform them of the circumstance of the visit and for follow-up with them and/or the need for any referrals to a consulting specialist. The emergency department will also refer you to a specialist when appropriate. This referral assures that you have the opportunity for follow-up care with a specialist. All of these measure are taken in an effort to provide you with optimal care, which includes your follow-up. Thank you for coming to the [facility] urgency department for your care today. It was Dr. Henson's pleasure to take care of you. [facility] - [facility] Clinic Professional Building [address] [place] [address], [address] [place] [address] You have a fracture of the distal fingertip. Please wear the splint as directed. Follow-up with orthopedics. Return for uncontrolled pain or any other concerns. Under all circumstances we always encourage you to contact your private physician who remains a resource for coordinating your care. When calling for follow-up care, please make the office aware that this follow-up is from your recent emergency room visit. If for any reason you are refused follow-up, please contact the [facility] Emergency Department at and asked to speak to the emergency department charge nurse. Sepsis Event Note (ED) - Evaluation Sepsis Screening Result: No Definite Risk - Focused Exam Vital Signs: Vital Signs Temp Pulse Resp BP Pulse Ox 04/20/20 21:22 97.8 F 91 16 147/97 H 94 L - My Orders Last 24 Hours: My Active Orders 04/20/20 21:46 Vaccines to be Administered [RC] PER UNIT ROUTINE 04/20/20 22:35 Splinting [RC] ASDIRECTED - Assessment/Plan Last 24 Hours: My Active Orders 04/20/20 21:46 Vaccines to be Administered [RC] PER UNIT ROUTINE 04/20/20 22:35 Splinting [RC] ASDIRECTED
--- NOTE | 2020-04-20 22:20 | CR ---
Indication: Smashed 3rd digit Technique: Three views of the left 3rd finger Comparison: None Findings/Impression: There is a minimally displaced obliquely oriented fracture through the distal aspect of the 3rd distal phalanx, best demonstrated on AP view. There is no joint dislocation. Dictated by Tra Quintana MD @ Apr 20 2020 10:17PM Signed by Dr. Tra Quintana @ Apr 20 2020 10:18PM
== END 2020-04-20 23:45 | disposition home or self-care (01) ==
LOC: MW.ED 20:23
DX: S62.633A Displaced fracture of distal phalanx of left middle finger, initial encounter for closed fracture (principal); I10 Essential (primary) hypertension; F17.210 Nicotine dependence, cigarettes, uncomplicated; Z88.5 Allergy status to narcotic agent; Z23 Encounter for immunization; Z79.899 Other long term (current) drug therapy; W23.0XXA Caught, crushed, jammed, or pinched between moving objects, initial encounter; Y92.89 Other specified places as the place of occurrence of the external cause; Y99.0 Civilian activity done for income or pay
CPT/HCPCS: 73140; 90471; 90715; 99283; A9270; 29130; 99282

== ENCOUNTER 2020-07-11 09:25 | Emergency (ER) | payer OTHER ==
--- NOTE | 2020-07-11 09:49 | EDM.PDOC ---
ED HPI GENERAL MEDICAL PROBLEM - General Chief Complaint: General Stated Complaint: LEFT ARM PAIN, RIGHT LEG PAIN Time Seen by Provider: 07/11/20 09:35 Source of Information: Reports: Patient History Limitations: Reports: No Limitations - History of Present Illness INITIAL COMMENTS - FREE TEXT/NARRATIVE: Patient is a 35-year-old male who presents today for left arm and left leg pain. Patient states he woke up with pain. Patient denies any activities where he could have injured the arm or leg. Patient denies any weakness or numbness noted area. Patient also denies any chest pain fever chills nausea vomiting. Patient states the arm hurts and he is unsure why. left arm and right knee Pain Score (Numeric/FACES): 6 - Related Data Allergies Allergy/AdvReac Type Severity Reaction Status Date / Time morphine Allergy Itching Verified 07/11/20 09:35 Home Meds: Home Meds Baclofen 10 mg PO ASDIRECTED PRN 10/23/19 [History] Ibuprofen [Motrin] 800 mg PO ASDIRECTED PRN 10/23/19 [History] Loratadine [Claritin] 10 mg PO ASDIRECTED PRN 10/23/19 [History] Losartan Potassium 100 mg PO DAILY 10/23/19 [History] Non-Formulary Medication [NF Drug] 1 patch TOP ASDIRECTED PRN 10/23/19 [History] Omeprazole 20 mg PO ASDIRECTED PRN 10/23/19 [History] Past Medical History - Past Health History Medical/Surgical History: Denies Medical/Surgical History Cardiovascular History: Reports: Hypertension Respiratory History: Reports: Sleep Apnea Other Respiratory History: uses a cpap Gastrointestinal History: Reports: GERD Musculoskeletal History: Reports: Back Pain, Chronic Psychiatric History: Reports: Anxiety, Depression - Infectious Disease History Infectious Disease History: Reports: Chicken Pox - Past Surgical History GI Surgical History: Reports: Colonoscopy, Hernia, Inguinal, Hernia Repair/Other Musculoskeletal Surgical History: Reports: Other (See Below) Other Musculoskeletal Surgeries/Procedures:: hand sx, r wrist fusion. groin flap for hand Social & Family History - Family History Family Medical History: No Pertinent Family History - Caffeine Use Caffeine Use: Reports: Soda ED ROS GENERAL - Review of Systems Review Of Systems: See Below Constitutional: Reports: No Symptoms HEENT: Reports: No Symptoms Respiratory: Reports: No Symptoms Cardiovascular: Reports: No Symptoms Endocrine: Reports: No Symptoms GI/Abdominal: Reports: No Symptoms : Reports: No Symptoms Musculoskeletal: Reports: Arm Pain, Leg Pain Skin: Reports: No Symptoms Neurological: Reports: No Symptoms Psychiatric: Reports: No Symptoms Hematologic/Lymphatic: Reports: No Symptoms Immunologic: Reports: No Symptoms ED EXAM, GENERAL - Physical Exam Exam: See Below Exam Limited By: No Limitations General Appearance: Alert, WD/WN Eye Exam: Bilateral Eye: EOMI, PERRL Respiratory/Chest: No Respiratory Distress, Lungs Clear Cardiovascular: Normal Peripheral Pulses GI/Abdominal: Normal Bowel Sounds, Soft, Non-Tender Back Exam: Full Range of Motion Extremities: Normal Inspection, Normal Range of Motion, Non-Tender Neurological: Alert, Oriented, CN II-XII Intact, Normal Cognition, Normal Gait #1 Interpretation EKG Date: 07/11/20 Time: 09:52 Rhythm: NSR Rate (Beats/Min): 71 QT: Normal Course - Vital Signs Last Recorded V/S: Last Vital Signs Temp 96.4 F L 07/11/20 09:30 Pulse 89 07/11/20 09:30 Resp 18 07/11/20 09:30 BP 132/92 H 07/11/20 09:30 Pulse Ox 96 07/11/20 09:30 - Orders/Labs/Meds Orders: Active Orders 24 hr Category Date Time Status EKG Documentation Completion [RC] STAT Care 07/11/20 09:50 Active Labs: Laboratory Tests 07/11/20 07/11/20 07/11/20 Range/Units 09:34 09:51 09:51 WBC 8.24 (4.0-11.0) K/uL RBC 5.30 (4.50-5.90) M/uL Hgb 16.4 (13.0-17.0) g/dL Hct 50.1 H (38.0-50.0) % MCV 94.5 (80.0-98.0) fL MCH 30.9 (27.0-32.0) pg MCHC 32.7 (31.0-37.0) g/dL RDW Std Deviation 46.5 (28.0-62.0) fl RDW Coeff of Mariza 14 (11.0-15.0) % Plt Count 222 (150-400) K/uL MPV 10.60 (7.40-12.00) fL Neut % (Auto) 61.2 (48.0-80.0) % Lymph % (Auto) 27.2 (16.0-40.0) % [place] % (Auto) 9.6 (0.0-15.0) % Eos % (Auto) 1.8 (0.0-7.0) % Baso % (Auto) 0.2 (0.0-1.5) % Neut # (Auto) 5.0 (1.4-5.7) K/uL Lymph # (Auto) 2.2 (0.6-2.4) K/uL [place] # (Auto) 0.8 (0.0-0.8) K/uL Eos # (Auto) 0.2 (0.0-0.7) K/uL Baso # (Auto) 0.0 (0.0-0.1) K/uL Nucleated RBC % 0.0 /100WBC Nucleated RBCs # 0 K/uL Sodium 141 (136-148) mmol/L Potassium 3.9 (3.5-5.1) mmol/L Chloride 104 (98-107) mmol/L Carbon Dioxide 24.3 (21.0-32.0) mmol/L BUN 13 (7.0-18.0) mg/dL Creatinine 1.1 (0.8-1.3) mg/dL Est Cr Clr Drug Dosing 100.92 mL/min Estimated GFR (MDRD) > 60.0 ml/min Glucose 126 H (74-106) mg/dL POC Glucose 116 H (60-110) mg/dL Calcium 8.8 (8.5-10.1) mg/dL Phosphorus 2.9 (2.6-4.7) mg/dL Magnesium 2.1 (1.8-2.4) mg/dL Total Bilirubin 0.3 (0.2-1.0) mg/dL AST 18 (15-37) IU/L ALT 46 (14-63) IU/L Alkaline Phosphatase 92 (46-116) U/L Creatine Kinase 168 (26-308) U/L Troponin I (0.000-0.056) ng/mL Total Protein 7.8 (6.4-8.2) g/dL Albumin 3.7 (3.4-5.0) g/dL Globulin 4.1 H (2.6-4.0) g/dL Albumin/Globulin Ratio 0.9 (0.9-1.6) Urine Opiates Screen (NEGATIVE) Ur Oxycodone Screen (NEGATIVE) Urine Methadone Screen (NEGATIVE) Ur Barbiturates Screen (NEGATIVE) Ur Phencyclidine Scrn (NEGATIVE) Ur Amphetamine Screen (NEGATIVE) U Methamphetamines Scrn (NEGATIVE) U Benzodiazepines Scrn (NEGATIVE) U Cocaine Metab Screen (NEGATIVE) U Marijuana (THC) Screen (NEGATIVE) Ethyl Alcohol <3 mg/dL 07/11/20 07/11/20 Range/Units 09:51 10:13 WBC (4.0-11.0) K/uL RBC (4.50-5.90) M/uL Hgb (13.0-17.0) g/dL Hct (38.0-50.0) % MCV (80.0-98.0) fL MCH (27.0-32.0) pg MCHC (31.0-37.0) g/dL RDW Std Deviation (28.0-62.0) fl RDW Coeff of Mariza (11.0-15.0) % Plt Count (150-400) K/uL MPV (7.40-12.00) fL Neut % (Auto) (48.0-80.0) % Lymph % (Auto) (16.0-40.0) % [place] % (Auto) (0.0-15.0) % Eos % (Auto) (0.0-7.0) % Baso % (Auto) (0.0-1.5) % Neut # (Auto) (1.4-5.7) K/uL Lymph # (Auto) (0.6-2.4) K/uL [place] # (Auto) (0.0-0.8) K/uL Eos # (Auto) (0.0-0.7) K/uL Baso # (Auto) (0.0-0.1) K/uL Nucleated RBC % /100WBC Nucleated RBCs # K/uL Sodium (136-148) mmol/L Potassium (3.5-5.1) mmol/L Chloride (98-107) mmol/L Carbon Dioxide (21.0-32.0) mmol/L BUN (7.0-18.0) mg/dL Creatinine (0.8-1.3) mg/dL Est Cr Clr Drug Dosing mL/min Estimated GFR (MDRD) ml/min Glucose (74-106) mg/dL POC Glucose (60-110) mg/dL Calcium (8.5-10.1) mg/dL Phosphorus (2.6-4.7) mg/dL Magnesium (1.8-2.4) mg/dL Total Bilirubin (0.2-1.0) mg/dL AST (15-37) IU/L ALT (14-63) IU/L Alkaline Phosphatase (46-116) U/L Creatine Kinase (26-308) U/L Troponin I < 0.050 (0.000-0.056) ng/mL Total Protein (6.4-8.2) g/dL Albumin (3.4-5.0) g/dL Globulin (2.6-4.0) g/dL Albumin/Globulin Ratio (0.9-1.6) Urine Opiates Screen NEGATIVE (NEGATIVE) Ur Oxycodone Screen NEGATIVE (NEGATIVE) Urine Methadone Screen NEGATIVE (NEGATIVE) Ur Barbiturates Screen NEGATIVE (NEGATIVE) Ur Phencyclidine Scrn NEGATIVE (NEGATIVE) Ur Amphetamine Screen NEGATIVE (NEGATIVE) U Methamphetamines Scrn NEGATIVE (NEGATIVE) U Benzodiazepines Scrn NEGATIVE (NEGATIVE) U Cocaine Metab Screen NEGATIVE (NEGATIVE) U Marijuana (THC) Screen NEGATIVE (NEGATIVE) Ethyl Alcohol mg/dL - Re-Assessments/Exams Free Text/Narrative Re-Assessment/Exam: 07/11/20 10:38 Patient EKG reviewed as well as labs and CT head. Patient has no neurological deficits. Patient does seem sleepy on exam but is awake given answer questions ambulate without issue. Patient has good range of motion and strength in all extremities. Patient vital signs are stable as well will be discharged home patient follows at the [place] recommended continuing follow-up there for further care. Departure - Departure Time of Disposition: 10:40 Disposition: Home, Self-Care 01 Condition: Good Clinical Impression: Arm pain - Discharge Information *PRESCRIPTION DRUG MONITORING PROGRAM REVIEWED*: Not Applicable *COPY OF PRESCRIPTION DRUG MONITORING REPORT IN PATIENT SEVERO: Not Applicable Instructions: Shoulder Pain, [id number] Referrals: Henry Andrews CASH APPLICATIONS ANALYST [Primary Care Provider] - Forms: ED Department Discharge Additional Instructions: The following information is given to patients seen in the emergency department who are being discharged to home. This information is to outline your options for follow-up care. We provide all patients seen in our emergency department with a follow-up referral. The need for follow-up, as well as the timing and circumstances, are variable depending upon the specifics of your emergency department visit. If you don't have a primary care physician on staff, we will provide you with a referral. We always advise you to contact your personal physician following an emergency department visit to inform them of the circumstance of the visit and for follow-up with them and/or the need for any referrals to a consulting specialist. The emergency department will also refer you to a specialist when appropriate. This referral assures that you have the opportunity for follow-up care with a specialist. All of these measure are taken in an effort to provide you with optimal care, which includes your follow-up. Under all circumstances we always encourage you to contact your private physician who remains a resource for coordinating your care. When calling for follow-up care, please make the office aware that this follow-up is from your recent emergency room visit. If for any reason you are refused follow-up, please contact the [facility] Emergency Department at and asked to speak to the emergency department charge nurse. Please follow up with your primary care physician. If you do not have a primary care physician, see below: [facility] [address] [place] [id number] [facility] [address] [place] [id number] Please continue to follow-up with your primary care physician. We the imaging of your head we did EKG for your heart as well as lab work everything came back within normal range we recommend you continue to follow-up. If you have any other concerning signs or symptom please return to the ED. Sepsis Event Note (ED) - Evaluation Sepsis Screening Result: No Definite Risk - Focused Exam Vital Signs: Vital Signs Temp Pulse Resp BP Pulse Ox 07/11/20 09:30 96.4 F L 89 18 132/92 H 96 - My Orders Last 24 Hours: My Active Orders 07/11/20 09:50 EKG Documentation Completion [RC] STAT - Assessment/Plan Last 24 Hours: My Active Orders 07/11/20 09:50 EKG Documentation Completion [RC] STAT Assessment:: Is a 35-year-old male who presents today for arm and leg pain. Patient the pain came out of nowhere. Patient does seem sleepy on exam but answering questions and seen on x3. Has no areas of point tenderness has full range of motion no signs of injury to the arm or leg. Will obtain labs and reassess.
[2020-07-11 10:21] LABS: BLOOD UREA NITROGEN,BUN 13 mg/dL (7.0-18.0); CARBON DIOXIDE,CO2 24.3 mmol/L (21.0-32.0); CHLORIDE,CL 104 mmol/L (98-107); GLUCOSE RANDOM 126 mg/dL (74-106); POTASSIUM,K 3.9 mmol/L (3.5-5.1); SODIUM,NA 141 mmol/L (136-148)
--- NOTE | 2020-07-11 10:31 | CT ---
INDICATION: Left arm and right leg pain. Possible weakness. Poor historian. Question confusion. TECHNIQUE: Scanning of the head was performed without IV contrast material. Coronal and sagittal reconstructions were obtained. COMPARISON: Head CT 10/23/2019. FINDINGS: No acute hemorrhage, parenchymal attenuation abnormality, or mass effect is demonstrated. Differentiation between the morales matter and white matter is preserved. The ventricles and other subarachnoid spaces are within normal limits. No calvarial abnormality is evident. The visualized paranasal and mastoid sinuses are clear. IMPRESSION: Negative noncontrast head CT. Please note that all CT scans at this facility use dose modulation, iterative reconstruction, and/or weight-based dosing when appropriate to reduce radiation dose to as low as reasonably achievable. Dictated by Jhoan Martino MD @ Jul 11 2020 10:27AM Signed by Dr. Jhoan Martino @ Jul 11 2020 10:30AM
== END 2020-07-11 10:47 | disposition home or self-care (01) ==
LOC: MW.ED 09:25
DX: M79.602 Pain in left arm (principal); I10 Essential (primary) hypertension; Z88.5 Allergy status to narcotic agent; Z79.899 Other long term (current) drug therapy
CPT/HCPCS: 36415; 70450; 70450-26; 80053; 80179; 80305-QW; 82550; 82962; 83735; 84100; 84484; 85025; 93005; 93010; 99283; 99284-25

== ENCOUNTER 2020-11-22 08:13 | Emergency (ER) | payer OTHER ==
--- NOTE | 2020-11-22 08:29 | EDM.PDOC ---
ED HPI GENERAL MEDICAL PROBLEM - General Chief Complaint: Upper Extremity Injury/Pain Stated Complaint: LEFT WRIST PAIN Time Seen by Provider: 11/22/20 08:23 - History of Present Illness INITIAL COMMENTS - FREE TEXT/NARRATIVE: History of present illness: [] The patient has pain in the left wrist. It is on the dorsum in the center of the wrist. It is worse with movement. It is better when he held it straight. It started 2 days ago. He has been doing some woodworking at home for several days and that is the only new thing. 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 The patient has never had anything last this long before but he has had pain in the left wrist occasionally before. Patient denies any systemic signs of illness. Review of systems: As per history of present illness and below otherwise all systems reviewed and negative. Past medical history: As per history of present illness and as reviewed below otherwise noncontributory. Surgical history: As per history of present illness and as reviewed below otherwise noncontributory. Social history: No reported history of drug or alcohol abuse. Family history: As per history of present illness and as reviewed below otherwise noncontributory. Physical exam: Constitutional - well developed, well-nourished and in no acute distress HEENT - normocephalic, no evidence of trauma - external nose and mouth normal - no mass in neck and no JVD - mucosae moist EYES - full EOM, PERRL, no icterus - no evidence of inflammation, injection, or drainage Respiratory - no respiratory distress, equal bilateral expansion Vascular - pulses in the wrist and capillary refill intact in the left upper extremity with warm pink fingers Musculoskeletal there is point tenderness on the dorsum of the left wrist halfwa y between knee ulnar and radial edges. No gross deformity of long bones or joints - no tenderness, swelling or edema Neurologic -median ulnar and radial motor sensory exam intact in the left upper extremity. Alert and oriented times four - CN II-XII grossly intact - motor sensory and coordination symmetrically normal Psychiatric - appropriate mood and affect with normal thought content Integument - no rash or evidence of trauma - normal turgor Diagnostics: [] Therapeutics: [] Impression: [] Plan: [] Definitive disposition and diagnosis as appropriate pending reevaluation and review of above. Left Wrist Pain Score (Numeric/FACES): 7 - Related Data Allergies Allergy/AdvReac Type Severity Reaction Status Date / Time morphine Allergy Itching Verified 11/22/20 08:26 Home Meds: Home Meds Ibuprofen [Motrin] 800 mg PO ASDIRECTED PRN 10/23/19 [History] Loratadine [Claritin] 10 mg PO ASDIRECTED PRN 10/23/19 [History] Losartan Potassium 100 mg PO DAILY 10/23/19 [History] Non-Formulary Medication [NF Drug] 1 patch TOP ASDIRECTED PRN 10/23/19 [History] Omeprazole 20 mg PO ASDIRECTED PRN 10/23/19 [History] Past Medical History - Past Health History Medical/Surgical History: Denies Medical/Surgical History Cardiovascular History: Reports: Hypertension Respiratory History: Reports: Sleep Apnea Other Respiratory History: uses a cpap Gastrointestinal History: Reports: GERD Musculoskeletal History: Reports: Back Pain, Chronic Psychiatric History: Reports: Anxiety, Depression - Infectious Disease History Infectious Disease History: Reports: Chicken Pox - Past Surgical History GI Surgical History: Reports: Colonoscopy, Hernia, Inguinal, Hernia Repair/Other Musculoskeletal Surgical History: Reports: Other (See Below) Other Musculoskeletal Surgeries/Procedures:: hand sx, r wrist fusion. groin flap for hand Social & Family History - Family History Family Medical History: No Pertinent Family History - Caffeine Use Caffeine Use: Reports: Soda Review of Systems - Review of Systems Review Of Systems: Comprehensive ROS is negative, except as noted in HPI. ED EXAM, GENERAL - Physical Exam Exam: See Below Free Text/Narrative:: My physical exam is in the HPI Course - Vital Signs Text/Narrative:: My interpretation of the x-ray is normal. Impression is overuse syndrome and tendinitis. Patient will be splinted and told to take anti-inflammatory medicine as well as heat. Last Recorded V/S: Last Vital Signs Temp 36.6 C 11/22/20 08:20 Pulse 91 11/22/20 08:20 Resp 18 11/22/20 08:20 BP 139/94 H 11/22/20 08:20 Pulse Ox 97 11/22/20 08:20 - Orders/Labs/Meds Orders: Active Orders 24 hr Category Date Time Status Wrist Comp Min 3V Lt [CR] Stat Exams 11/22/20 08:27 Taken DME for Discharge [COMM] Stat Oth 11/22/20 08:44 Ordered Meds: Medications Discontinued Medications Generic Name Dose Route Start Last Admin Trade Name Mikhail PRN Reason Stop Dose Admin Naproxen 500 mg 11/22/20 08:44 Naproxen 500 Mg Tab PO 11/22/20 08:45 ONETIME ONE Departure - Departure Time of Disposition: 09:00 Disposition: Home, Self-Care 01 Condition: Good Clinical Impression: Strain of unspecified muscle, fascia and tendon at wrist and hand level, left hand, initial encounter, Tendinitis - Discharge Information Instructions: Tendinitis, [id number] Referrals: PCP,None [Primary Care Provider] - Forms: ED Department Discharge Additional Instructions: Use anti-inflammatories and heat [facility] [address] [place] [id number] [address] The following information is given to patients seen in the emergency department who are being discharged to home. This information is to outline your options for follow-up care. We provide all patients seen in our emergency department with a follow-up referral. The need for follow-up, as well as the timing and circumstances, are variable depending upon the specifics of your emergency department visit. If you don't have a primary care physician on staff, we will provide you with a referral. We always advise you to contact your personal physician following an emergency department visit to inform them of the circumstance of the visit and for follow-up with them and/or the need for any referrals to a consulting specialist. The emergency department will also refer you to a specialist when appropriate. This referral assures that you have the opportunity for follow-up care with a specialist. All of these measure are taken in an effort to provide you with optimal care, which includes your follow-up. Under all circumstances we always encourage you to contact your private physician who remains a resource for coordinating your care. When calling for follow-up care, please make the office aware that this follow-up is from your recent emergency room visit. If for any reason you are refused follow-up, please contact the [facility] Emergency Department at and asked to speak to the emergency department charge nurse. Sepsis Event Note (ED) - Evaluation Sepsis Screening Result: No Definite Risk - Focused Exam Vital Signs: Vital Signs Temp Pulse Resp BP Pulse Ox 11/22/20 08:20 36.6 C 91 18 139/94 H 97 - My Orders Last 24 Hours: My Active Orders 11/22/20 08:27 Wrist Comp Min 3V Lt [CR] Stat 11/22/20 08:44 DME for Discharge [COMM] Stat - Assessment/Plan Last 24 Hours: My Active Orders 11/22/20 08:27 Wrist Comp Min 3V Lt [CR] Stat 11/22/20 08:44 DME for Discharge [COMM] Stat
[2020-11-22] MEDS ORDERED: Naproxen 500 MG Tab PO ONE (08:44)
--- NOTE | 2020-11-22 08:47 | CR ---
Indication: Left wrist pain Technique: Left wrist 3 views Comparison: None Findings: Bones: Alignment is normal. No fractures or bone lesions. Joint spaces: Joint spaces are well maintained. No degenerative changes. Soft tissues: Unremarkable. Impression: No findings to explain pain. Dictated by Alexandro Mario MD @ 11/22/2020 8:47:[address] Alexandro Mario @ Nov 22 2020 8:47AM
== END 2020-11-22 09:06 | disposition home or self-care (01) ==
LOC: MW.ED 08:13
DX: S66.912A Strain of unspecified muscle, fascia and tendon at wrist and hand level, left hand, initial encounter (principal); M77.8 Other enthesopathies, not elsewhere classified; I10 Essential (primary) hypertension; K21.9 Gastro-esophageal reflux disease without esophagitis; Z79.899 Other long term (current) drug therapy; Z88.6 Allergy status to analgesic agent; X50.1XXA Overexertion from prolonged static or awkward postures, initial encounter
CPT/HCPCS: 73110; 99283; A9270

== ENCOUNTER 2021-02-12 19:47 | Emergency (ER) | payer OTHER ==
[2021-02-12] MEDS ORDERED: Sodium Chloride 0.9% 10 ML Syringe FLUSH PRN (20:05)
[2021-02-12] MEDS ORDERED: Sodium Chloride 0.9% 2.5 ML Syringe FLUSH PRN (20:05)
[2021-02-12] MEDS ORDERED: Ketorolac 30 MG/ML SDV IVPUSH ONE (20:05)
[2021-02-12] MEDS ORDERED: Ondansetron 4 MG/2 ML SDV IVPUSH ONE (20:05)
[2021-02-12] MEDS ORDERED: Sodium Chloride 0.9% 1,000 ML IV ONE (20:05)
[2021-02-12] MEDS ORDERED: diphenhydrAMINE 50 MG/ML SDV IVPUSH ONE (20:07)
[2021-02-12] MEDS ORDERED: HYDROmorphone 1 MG/ML Syringe IVPUSH ONE (20:07)
[2021-02-12 20:25] LABS: BLOOD UREA NITROGEN,BUN 13 mg/dL (7.0-18.0); CARBON DIOXIDE,CO2 24.5 mmol/L (21.0-32.0); CHLORIDE,CL 105 mmol/L (98-107); GLUCOSE RANDOM 122 mg/dL (74-106); LIPASE 94 U/L (73-393); POTASSIUM,K 4.2 mmol/L (3.5-5.1); SODIUM,NA 140 mmol/L (136-148)
--- NOTE | 2021-02-12 20:30 | EDM.PDOC ---
<Chavez Negro - Last Filed: 02/12/21 22:30> ED HPI GENERAL MEDICAL PROBLEM - General Chief Complaint: Genitourinary Problem Stated Complaint: POSSIBLE KIDNEY STONES Time Seen by Provider: 02/12/21 19:59 - Related Data Allergies Allergy/AdvReac Type Severity Reaction Status Date / Time morphine Allergy Itching Verified 02/12/21 19:57 Home Meds: Home Meds Ibuprofen [Motrin] 800 mg PO ASDIRECTED PRN 10/23/19 [History] Loratadine [Claritin] 10 mg PO ASDIRECTED PRN 10/23/19 [History] Non-Formulary Medication [NF Drug] 1 patch TOP ASDIRECTED PRN 10/23/19 [History] Omeprazole 20 mg PO ASDIRECTED PRN 10/23/19 [History] ED ROS GENERAL - Review of Systems Review Of Systems: See Below ED EXAM, GENERAL - Physical Exam Exam: See Below Departure - Departure Time of Disposition: 22:30 Disposition: Home, Self-Care 01 Condition: Good Clinical Impression: Flank pain Abdominal pain Qualifiers: Abdominal location: right lower quadrant Qualified Code(s): R10.31 - Right lower quadrant pain - Discharge Information *PRESCRIPTION DRUG MONITORING PROGRAM REVIEWED*: Not Applicable *COPY OF PRESCRIPTION DRUG MONITORING REPORT IN PATIENT SEVERO: Not Applicable Instructions: Abdominal Pain, Adult Referrals: Henry Andrews [facility] [Primary Care Provider] - Forms: ED Department Discharge Additional Instructions: The following information is given to patients seen in the emergency department who are being discharged to home. This information is to outline your options for follow-up care. We provide all patients seen in our emergency department with a follow-up referral. The need for follow-up, as well as the timing and circumstances, are variable depending upon the specifics of your emergency department visit. If you don't have a primary care physician on staff, we will provide you with a referral. We always advise you to contact your personal physician following an emergency department visit to inform them of the circumstance of the visit and for follow-up with them and/or the need for any referrals to a consulting specialist. The emergency department will also refer you to a specialist when appropriate. This referral assures that you have the opportunity for follow-up care with a specialist. All of these measure are taken in an effort to provide you with optimal care, which includes your follow-up. Under all circumstances we always encourage you to contact your private physician who remains a resource for coordinating your care. When calling for follow-up care, please make the office aware that this follow-up is from your recent emergency room visit. If for any reason you are refused follow-up, please contact the [facility] Emergency Department at and asked to speak to the emergency department charge nurse. Please follow up with your primary care physician. If you do not have a primary care physician, see below: [facility] [address] [place] [id number] My [facility] [address] [place] [address] You are seen today for chichi pain. CAT scan was negative did not show any findings that can contribute to your pain. Unsure why you are having this pain. If you continue to have pain please follow-up to primary care physician. <Mike Patterson E - Last Filed: 02/13/21 10:53> ED HPI GENERAL MEDICAL PROBLEM - General Source of Information: Reports: Patient History Limitations: Reports: No Limitations - History of Present Illness INITIAL COMMENTS - FREE TEXT/NARRATIVE: HISTORY AND PHYSICAL: History of present illness: Patient is a 36-year-old male who presents to the emergency room with complaints of flank pain and abdominal pain x2 days. Patient states earlier this week he had gone to his primary care provider for consultation of insomnia. She did basic lab work and found he had hematuria. He was asymptomatic at that time so no further work-up was done. 2 days ago he started to have left sided flank pain and today it now radiates into the low abdomen bilaterally. Upon my evaluation he does have right-sided flank tenderness which he states is new. Mild nausea without vomiting. Patient denies any fever, chills, headache, change in vision, syncope or near syncope. Denies any chest pain, shortness of breath or cough. Denies any diarrhea, constipation or dysuria. Has not noted any blood in urine or stool. Denies any testicular pain redness or swelling. No concern for STD. Patient has been eating and drinking appropriately. Review of systems: As per history of present illness and below otherwise all systems reviewed and negative. Past medical history: As per history of present illness and as reviewed below otherwise noncontributory. Surgical history: As per history of present illness and as reviewed below otherwise noncontributory. Social history: See social history for further information Family history: As per history of present illness and as reviewed below otherwise noncontributory. Physical exam: General: Well developed and well nourished. Alert and orientated x 3. Nontoxic in appearance and in no acute distress. Vital signs are stable and have been reviewed by me. Nursing notes were reviewed. HEENT: Atraumatic, normocephalic, pupils equal and reactive bilaterally, negative for conjunctival pallor or scleral icterus, mucous membranes moist, trachea midline. No drooling or trismus noted. No meningeal signs. No hot potato voice noted. Lungs: Clear to auscultation bilaterally. No wheezes, rales, or rhonchi. Chest nontender. Normal work of breathing, no accessory muscles used. Heart: S1S2, regular rate and rhythm without overt murmur, gallops, or rubs. No JVD. No peripheral edema Abdomen: Soft, nondistended, nontender. Normoactive bowel sounds. Negative for masses. Bilateral costovertebral tenderness. Skin: Intact, warm, dry. No lesions or rashes noted. Hematologic: No petechiae or purpra. Mucosa appropriate color and normal nail bed color and refill. Extremities: Atraumatic, moves all extremities per self without difficulty or deficits, negative for cords or calf pain. Neurovascular unremarkable. Neuro: Awake, alert, oriented. Cranial nerves II through XII unremarkable. Cerebellum unremarkable. Motor and sensory unremarkable throughout. Exam nonfocal. Psychiatric: Mood and affect are appropriate. Normal thought process. Answering questions appropriately. Notes: *This patient was seen and evaluated during the 2019 SARS-CoV-2 novel marisol navirus pandemic period. Community viral transmission is ongoing at time of this encounter and the emergency department is operating under pandemic response procedures. Patient is a 36-year-old male who presents to the emergency room with concerns he has kidney stones. 2 days ago he started having left flank pain, upon my physical exam he has right flank tenderness and right lower quadrant tenderness. He has had some mild nausea without vomiting. States he saw his primary care provider earlier this week to discuss his insomnia and possibly get medications when an incidental finding of hematuria was noted. Since he was asymptomatic no further work-up was done at this time. Due to patient's generalized flank pain and now abdominal pain I will do basic lab work. Patient has trace blood in his urine, due to the right lower quadrant pain and bilateral flank pain I will get a CT scan with and without. Patient states he is having pain after Toradol. He has had narcotics such as morphine in the past he typically will get Benadryl with it and have no problems. Lab work is unremarkable. CT results are pending. Dr Negro will assume care of this patient and will disposition patient appropriately. Diagnostics: CBC, CMP, UA, Lipase, CT abd/pelvis Therapeutics: IV fluids, Zofran, Toradol, Benadryl, Dilaudid Impression: Abdominal pain Flank pain Definitive disposition and diagnosis as appropriate pending reevaluation and review of above. Left Flank Pain Score (Numeric/FACES): 8 Past Medical History - Past Health History Medical/Surgical History: Denies Medical/Surgical History HEENT History: Reports: None Cardiovascular History: Reports: Hypertension Respiratory History: Reports: Sleep Apnea Other Respiratory History: uses a cpap Gastrointestinal History: Reports: GERD Genitourinary History: Reports: None Musculoskeletal History: Reports: Back Pain, Chronic Neurological History: Reports: None Psychiatric History: Reports: Anxiety, Depression Endocrine/Metabolic History: Reports: Obesity/BMI 30+ Hematologic History: Reports: None Immunologic History: Reports: None Oncologic (Cancer) History: Reports: Other (See Below) Other Oncologic History: neurofibroma left hand Dermatologic History: Reports: Other (See Below) - Infectious Disease History Infectious Disease History: Reports: Chicken Pox - Past Surgical History Head Surgeries/Procedures: Reports: None GI Surgical History: Reports: Colonoscopy, Hernia, Inguinal, Hernia Repair/Other Musculoskeletal Surgical History: Reports: Other (See Below) Other Musculoskeletal Surgeries/Procedures:: hand sx, r wrist fusion. groin flap for hand, amputated pinkie on left hand Dermatological Surgical History: Reports: Skin Graft, Other (See Below) Social & Family History - Family History Family Medical History: No Pertinent Family History Other Oncologic Family History: uncle has colon cancer - Caffeine Use Caffeine Use: Reports: Coffee - Recreational Drug Use Recreational Drug Use: No Course - Vital Signs Last Recorded V/S: Last Vital Signs Temp 97.7 F 02/12/21 19:51 Pulse 96 02/12/21 19:51 Resp 20 02/12/21 19:51 BP 149/105 H 02/12/21 19:51 Pulse Ox 96 02/12/21 19:51 - Orders/Labs/Meds Orders: Active Orders 24 hr Category Date Time Status Saline Lock Insert [OM.PC] Stat Oth 02/12/21 20:05 Ordered Labs: Laboratory Tests 02/12/21 02/12/21 02/12/21 Range/Units 19:57 19:57 20:15 WBC 10.32 (4.0-11.0) K/uL RBC 5.12 (4.50-5.90) M/uL Hgb 16.4 (13.0-17.0) g/dL Hct 47.5 (38.0-50.0) % MCV 92.8 (80.0-98.0) fL MCH 32.0 (27.0-32.0) pg MCHC 34.5 (31.0-37.0) g/dL RDW Std Deviation 46.0 (28.0-62.0) fl RDW Coeff of Mariza 14 (11.0-15.0) % Plt Count 233 (150-400) K/uL MPV 11.40 (7.40-12.00) fL Neut % (Auto) 59.2 (48.0-80.0) % Lymph % (Auto) 31.8 (16.0-40.0) % Dickson % (Auto) 7.3 (0.0-15.0) % Eos % (Auto) 1.5 (0.0-7.0) % Baso % (Auto) 0.2 (0.0-1.5) % Neut # (Auto) 6.1 H (1.4-5.7) K/uL Lymph # (Auto) 3.3 H (0.6-2.4) K/uL Dickson # (Auto) 0.8 (0.0-0.8) K/uL Eos # (Auto) 0.2 (0.0-0.7) K/uL Baso # (Auto) 0.0 (0.0-0.1) K/uL Nucleated RBC % 0.0 /100WBC Nucleated RBCs # 0 K/uL Sodium 140 (136-148) mmol/L Potassium 4.2 (3.5-5.1) mmol/L Chloride 105 (98-107) mmol/L Carbon Dioxide 24.5 (21.0-32.0) mmol/L BUN 13 (7.0-18.0) mg/dL Creatinine 1.0 (0.8-1.3) mg/dL Est Cr Clr Drug Dosing 109.93 mL/min Estimated GFR (MDRD) > 60.0 ml/min Glucose 122 H (74-106) mg/dL Calcium 8.5 (8.5-10.1) mg/dL Total Bilirubin 0.3 (0.2-1.0) mg/dL AST 46 H (15-37) IU/L ALT 75 H (14-63) IU/L Alkaline Phosphatase 106 (46-116) U/L Total Protein 7.7 (6.4-8.2) g/dL Albumin 3.8 (3.4-5.0) g/dL Globulin 3.9 (2.6-4.0) g/dL Albumin/Globulin Ratio 1.0 (0.9-1.6) Lipase 94 (73-393) U/L Urine Color YELLOW Urine Appearance HAZY Urine pH 6.0 (5.0-8.0) Ur Specific Moore >= 1.030 (1.001-1.035) Urine Protein NEGATIVE (NEGATIVE) mg/dL Urine Glucose (UA) NEGATIVE (NEGATIVE) mg/dL Urine Ketones NEGATIVE (NEGATIVE) mg/dL Urine Occult Blood TRACE-INTACT H (NEGATIVE) Urine Nitrite NEGATIVE (NEGATIVE) Urine Bilirubin NEGATIVE (NEGATIVE) Urine Urobilinogen 0.2 (<2.0) EU/dL Ur Leukocyte Esterase NEGATIVE (NEGATIVE) Urine RBC 0-1 (0-2/HPF) Urine WBC 0-1 (0-5/HPF) Ur Epithelial Cells RARE (NONE-FEW) Urine Bacteria FEW (NEGATIVE) Meds: Medications Discontinued Medications Generic Name Dose Route Start Last Admin Trade Name Freq PRN Reason Stop Dose Admin Diphenhydramine HCl 25 mg 02/12/21 20:07 02/12/21 20:31 Diphenhydramine 50 Mg/Ml Sdv IVPUSH 02/12/21 20:08 25 mg ONETIME ONE Administration Hydromorphone HCl 1 mg 02/12/21 20:07 02/12/21 20:33 Hydromorphone 1 Mg/Ml Syringe IVPUSH 02/12/21 20:08 1 mg ONETIME ONE Administration Sodium Chloride 1,000 mls @ 125 mls/hr 02/12/21 20:05 02/12/21 20:14 Normal Saline IV 02/13/21 04:04 125 mls/hr STAT ONE Administration Iopamidol 100 ml 02/12/21 20:43 02/12/21 21:18 Iopamidol 755 Mg/Ml 500 Ml Multipack Bottle IVPUSH 02/12/21 20:44 100 ml ONETIME STA Administration Ketorolac Tromethamine 30 mg 02/12/21 20:05 02/12/21 20:15 Ketorolac 30 Mg/Ml Sdv IVPUSH 02/12/21 20:06 30 mg ONETIME ONE Administration Ondansetron HCl 4 mg 02/12/21 20:05 02/12/21 20:15 Ondansetron 4 Mg/2 Ml Sdv IVPUSH 02/12/21 20:06 4 mg ONETIME ONE Administration Sodium Chloride 10 ml 02/12/21 20:05 Sodium Chloride 0.9% 10 Ml Syringe FLUSH ASDIRECTED PRN Keep Vein Open Sodium Chloride 2.5 ml 02/12/21 20:05 Sodium Chloride 0.9% 2.5 Ml Syringe FLUSH ASDIRECTED PRN Keep Vein Open - My Orders Last 24 Hours: My Active Orders 02/12/21 20:05 Saline Lock Insert [OM.PC] Stat - Assessment/Plan Last 24 Hours: My Active Orders 02/12/21 20:05 Saline Lock Insert [OM.PC] Stat
[2021-02-12] MEDS ORDERED: Iopamidol 755 MG/ML 500 ML Multipack Bottle IVPUSH STA (20:43)
--- NOTE | 2021-02-12 22:28 | CT ---
indication: Bilateral flank pain right lower quadrant pain Technique: Contrast enhanced CT abdomen pelvis 100 mL Isovue Comparison: CT abdomen pelvis 05/11/2019 Findings: Heart size normal basilar atelectasis. No effusion. Fatty liver. Gallbladder pancreas glands are unremarkable spleen unremarkable. Normal caliber abdominal aorta. Symmetric enhancement of both kidneys. No hydronephrosis no renal calculi seen on this contrast study. Too small to characterize low-density lesion the right kidney could represent small cyst. Normal appendix. Urinary bladder unremarkable. Prostate gland unremarkable. Fat containing inguinal hernias. Abundant stool in the colon no suspicious bony lesions. Impression: 1. No acute findings in abdomen pelvis no hydronephrosis. Normal appendix. 2. Fatty liver. Please note that all CT scans at this facility use dose modulation, iterative reconstruction, and/or weight-based dosing when appropriate to reduce radiation dose to as low as reasonably achievable. Dictated by Fannie Mathew MD @ 02/12/2021 10:27:[address] Fannie Mathew @ Feb 12 2021 10:27PM
== END 2021-02-12 22:44 | disposition home or self-care (01) ==
LOC: MW.ED 19:47
DX: R10.31 Right lower quadrant pain (principal); E66.9 Obesity, unspecified; I10 Essential (primary) hypertension; K21.9 Gastro-esophageal reflux disease without esophagitis; Z88.5 Allergy status to narcotic agent; Z79.899 Other long term (current) drug therapy; Z68.41 Body mass index [BMI] 40.0-44.9, adult
CPT/HCPCS: 36415; 74178; 80053; 81001; 83690; 85025; 96374; 96375; 99284; J1170; J1200; J1885; J2405; J7030; Q9967

== ENCOUNTER 2024-05-03 01:45 | Emergency (ER) | payer OTHER ==
[2024-05-03 02:33] LABS: BASOPHILS ABSOLUTE AUTO 0.03 K/uL (0.00-0.20); BASOPHILS PERCENT AUTO 0.3 % (0.0-1.0); EOSINOPHILS ABSOLUTE AUTO 0.17 K/uL (0.00-0.45); EOSINOPHILS PERCENT AUTO 1.7 % (0.0-6.0); HEMATOCRIT 44.1 % (42.0-52.0); HEMOGLOBIN 15.3 g/dL (14.0-18.0); IMMATURE GRAN ABSOLUTE AUTO 0.02 K/uL (0.00-0.05); IMMATURE GRAN PERCENT AUTO 0.2 % (0.0-0.4); LYMPHOCYTES PERCENT AUTO 33.7 % (24.0-44.0); MEAN CORPUSCULAR HEMOGLOBIN 32.8 pg (28.0-32.0); MEAN CORPUSCULAR HGB CONC 34.7 g/dL (32.0-36.0); MEAN CORPUSCULAR VOLUME 94.4 fL (83.0-99.0); MEAN PLATELET VOLUME 11.1 fL (9.4-12.4); MONOCYTES ABSOLUTE AUTO 0.69 K/uL (0.00-0.80); MONOCYTES PERCENT AUTO 6.8 % (0.0-8.0); NEUTROPHILS ABSOLUTE AUTO 5.79 K/uL (1.80-7.70); NEUTROPHILS PERCENT AUTO 57.3 % (41.0-71.0); PLATELET COUNT,PLT 184 K/uL (150-400); RED BLOOD CELL COUNT 4.67 M/uL (4.52-5.90)
[2024-05-03 02:47] LABS: CALCIUM 8.6 mg/dL (8.5-10.1); CARBON DIOXIDE,CO2 25.9 mmol/L (21.0-32.0); EST CRCL DRUG DOSING (CG) 106.7 mL/min; POTASSIUM,K 3.6 mmol/L (3.5-5.1)
[2024-05-03] MEDS: Ondansetron 4 MG/2 ML SDV IVPUSH ONE (02:54)
== END 2024-05-03 05:12 | disposition home or self-care (01) ==
LOC: MW.ED 01:45
DX: R07.9 Chest pain, unspecified (principal); I10 Essential (primary) hypertension; E66.9 Obesity, unspecified; F17.210 Nicotine dependence, cigarettes, uncomplicated; Z68.32 Body mass index [BMI] 32.0-32.9, adult; Z88.5 Allergy status to narcotic agent
CPT/HCPCS: 36415; 71046; 80048; 84484; 85025; 93005; 96374; 99285; J2405

== ENCOUNTER 2025-01-22 18:19 | Emergency (ER) | payer OTHER ==
[2025-01-22] MEDS: Ketorolac 30 MG/ML SDV IM ONE (18:57)
== END 2025-01-22 20:00 | disposition home or self-care (01) ==
LOC: MW.ED 18:19
DX: S82.55XA Nondisplaced fracture of medial malleolus of left tibia, initial encounter for closed fracture (principal); I10 Essential (primary) hypertension; Z88.5 Allergy status to narcotic agent; W20.8XXA Other cause of strike by thrown, projected or falling object, initial encounter; Y99.0 Civilian activity done for income or pay
CPT/HCPCS: 29515; 73610; 96372; 99283; J1885; 99282